=== PATIENT | female | born 1980 | race Caucasian/White ===

== ENCOUNTER 2023-06-17 15:34 | Emergency (ER) | payer MEDICAID, SELFPAY ==
[2023-06-17 15:49] VITALS: BP 121/58; PULSE 80; RESP 18; TEMP 36.3; O2SAT 100; BMI 25.6
--- NOTE | 2023-06-17 15:57 | ED.GENADULT ---
HPI - General Adult General Chief complaint: Ear Problems Stated complaint: Ear pain Time Seen by Provider: 06/17/23 16:18 Source: patient, RN notes reviewed and old records reviewed Mode of arrival: ambulatory History of Present Illness HPI narrative: 42-year-old female with no significant past medical history presenting to the ED complaining of right ear pain and mild sore throat since today. Denies drainage from ear, hearing loss, difficulty /inability to swallow, SOB/CP, recent travel, sick contacts, cough Onset (ago): hour(s) Related Data Previous Rx's Medication Instructions Recorded ciprofloxacin HCl 0.2 % ear drops 5 drp otic (ear) right Q12H 7 days 06/17/23 in a dropperette #14 ea Allergies Allergy/AdvReac Type Severity Reaction Status Date / Time No Known Allergies Allergy Verified 06/17/23 15:49 Review of Systems Review of Systems: Constitutional: No Fever, No Chills ENT/Mouth: + Ear Pain, No Nasal Congestion, No Sinus Pain, No Hoarseness, + sore throat, No Rhinorrhea, No Swallowing Difficulty Cardiovascular: No Chest Pain, No SOB Respiratory: No Cough, No Sputum, No Wheezing Gastrointestinal: No Nausea, No Vomiting, No Abdominal pain Musculoskeletal: No joint pain, No Myalgias, No Joint Swelling Skin: No Skin Lesions, No rash Neuro: No Weakness Yes all other systems are reviewed and are negative Constitutional: Constitutional: Reports as per [facility] Past Medical History Attestation statement: The following information was validated with the patient. Source: old records reviewed Social History Social History Advance Directives: No Advance Directives Information Provided: No Physical Exam ED Vital Signs: Vital Signs - 24 hr 06/17/23 15:49 Temperature 97.4 F Pulse Rate 80 Respiratory Rate 18 Blood Pressure 121/58 L Pulse Oximetry 100 Oxygen Delivery Method Room Air BMI result Body Mass Index 25.6 Const General: cooperative, healthy appearing and no acute distress Orientation/consciousness: patient oriented x3 Limitations: no limitations HENMT Head: Yes normal to inspection and Yes atraumatic Ears: hearing grossly normal bilaterally, mastoids normal, external ear abnormal auricular tenderness on the right and pain with movement of external ear on the right and TMs normal General nose exam: Normal external nose present Face and sinus: Yes normal facial exam Throat: Yes uvula midline, Yes abnormal tonsil ( bilaterally swollen, no exudates or erythema), No peritonsillar mass, No uvula laterally displaced and No uvular edema Eyes General: appearance normal, both eyes and all related structures EOM: EOMs intact bilaterally Neck Neck: Yes normal visual inspection, Yes no lymphadenopathy (+ submandibular lymphadenopathy > right), Yes no meningeal signs and No anterior neck swelling Resp Effort & Inspection: normal respiratory effort, not labored, no respiratory distress and no stridor Auscultation: clear to auscultation bilaterally Cardio Rate: regular rate Heart sounds: S1 normal heart sound present and S2 normal heart sound present Skin Rashes: no rashes Wounds: no wounds Neuro General: patient oriented x3, tone normal and no meningeal signs Cranial nerves: Yes CN's II-XII intact bilaterally Gait exam (Neuro): Normal gait present Extrem General: Yes normal to inspection Course Course Course Narrative: This is an RME: Additional HPI, ROS, PE not included below will be deferred to primary provider. This is a 42-year-old female presenting to the emergency department with complaints of right ear pain and sore throat for the last hour. On examination, vital signs within normal limits. Oropharynx with tonsillar hypertrophy, uvula midline, right ear with no erythema or edema noted. Plan: Strep swab and viral swabs - viral swabs and rapid strep negative Results discussed with patient including worrisome signs and symptoms and strict return precautions, and when to return to the emergency department. They verbalized understanding and feel safe for discharge at this time. Medical Decision Making Medical Decision Making MDM Narrative: 42-year-old female with no significant past medical history presenting to the ED complaining of right ear pain and mild sore throat since today. On exam vital signs stable, NAD, nontoxic appearing, right external ear canal with tenderness and tragus tenderness. TMs WNL. Mastoid stool panel. +B/l tonsillar swelling noted without exudates. Uvula midline. No stridor. Concern for viral syndrome versus pharyngitis versus otitis externa. 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 Differential Diagnosis Differential Diagnoses: The differential diagnosis associated with the presentation includes As above Lab Data [facility] Lab Attestation statement: I reviewed the patient's lab results. Labs: Lab Results 06/17/23 Range/Units 16:02 Influenza Type A (PCR) NEGATIVE (Negative) Influenza Type B (PCR) NEGATIVE (Negative) RSV RNA Qual (PCR) NEGATIVE (Negative) SARS-CoV-2 RNA (RT-PCR) NEGATIVE (Negative) S. pyogenes GrpA KARSTEN Negative (Negative) External Record Review External record reviewed: Inpatient record, Office record, Outpatient record, Prior outpatient labs, Prior outpatient radiology, Primary care record and Outside ED record Tests considered The following testing was considered but not selected: As above Prescription Management I considered prescription management with: Pain Medication and Antibiotic Discharge Plan Discharge Clinical Impression: Otitis externa Patient Disposition: Home, Self-Care Instructions: Otitis Externa (DC) Additional Instructions: you tested negative for COVID, flu, RSV, and strep ciprofloxacin drops is an antibiotic drop please use as prescribed Follow-up with her doctor Take Tylenol and Motrin as needed. Avoid anything in the ears including water and Q-tips If symptoms persist or worsen return to the ED des negativo en la prueba de COVID, gripe, VRS y estreptococos Las gotas de ciprofloxacina son gotas antibi?caden. Util?celas seg?n lo prescrito. Seguimiento con black m?dico. Fletcher Tylenol y Motrin seg?n sea necesario. Evite cualquier cosa en los o?dos, incluido el agua y los hisopos. Si los s?ntomas persisten o empeoran, regrese al servicio de urgencias. Prescriptions: New ciprofloxacin HCl 0.2 % dropperette 5 drp otic (ear) right Q12H 7 Days Qty: 14 0RF Referrals: [facility] [Primary Care Provider] - 5 days Interventions: ED Discharge Assessment Last Done: 06/17/23 18:16 Discharge Date/Time: 06/17/23 18:16 Print Language: Croatian
[2023-06-17 16:39] LABS: IDNOW Serial# 08D9AD1C; Strep A Nucleic Acid Negative (Negative)
[2023-06-17 16:47] LABS: Influenza A PCR NEGATIVE (Negative); Influenza B PCR NEGATIVE (Negative); Resp Syncy Virus RNA Qual PCR NEGATIVE (Negative); SARS COV2 PCR INHOUSE NEGATIVE (Negative)
== END 2023-06-17 18:16 | disposition home or self-care (01) ==
PROVIDERS: Physician Assistant Medical; Emergency Provider Emergency Medicine
DX: H60.91 Unspecified otitis externa, right ear (principal); J02.9 Acute pharyngitis, unspecified; Z20.822 Contact with and (suspected) exposure to COVID-19; Z20.828 Contact with and (suspected) exposure to other viral communicable diseases
CPT/HCPCS: 0241U; 87651; 99282; 99283

== ENCOUNTER 2023-07-15 09:35 | Emergency (ER) | payer MEDICAID, SELFPAY ==
--- NOTE | ~2023-07-15 | XR_ITS ---
EXAMINATION: XR WRIST, RIGHT CLINICAL INFORMATION: Right wrist pain COMPARISON: None available. TECHNIQUE: PA, lateral, and oblique views of the right wrist. FINDINGS: The bones and soft tissues are normal. No fracture. Alignment is anatomic with normal joint spaces. No erosions or abnormal soft tissue calcifications. XR/XR wrist RT min 3V IMPRESSION: Normal right wrist.
[2023-07-15 09:53] VITALS: BP 111/71; PULSE 86; RESP 14; TEMP 36.3; O2SAT 100; BMI 25.4
--- NOTE | 2023-07-15 10:36 | ED_ITS ---
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 She states the pain is located on the dorsal aspect of the wrist and is worse with palpation, flexion and hyperextension. The pain radiates to the 3, 4, 5th digits. No associated numbness or tingling. No weakness. No history of similar pains in the past. She is unemployed, denies computer work or repetitive movements using the hands. MD Complaint: joint pain Onset (ago): day(s) (2) Pain Consistency: constant Location: right and upper extremity Severity scale (1-10): 7 Quality: aching Radiation: distal Relieving factors: rest Exacerbating factors: range of motion and palpation Associated symptoms: denies other symptoms Related Data Previous Rx's Medication Instructions Recorded ciprofloxacin HCl 0.2 % ear drops 5 drp otic (ear) right Q12H 7 days 06/17/23 in a dropperette #14 ea Allergies Allergy/AdvReac Type Severity Reaction Status Date / Time No Known Allergies Allergy Verified 06/17/23 15:49 Review of Systems Review of Systems: Yes all other systems are reviewed and are negative [facility] Social History Social History Advance Directives: No Advance Directives Information Provided: No Physical Exam Vital Signs: Vital Signs: Last Vital Signs Temp 97.3 F 07/15/23 09:53 Pulse 86 07/15/23 09:53 Resp 14 07/15/23 09:53 BP 111/71 07/15/23 09:53 Pulse Ox 100 07/15/23 09:53 O2 Del Method Room Air 07/15/23 09:53 BMI result Body Mass Index 25.4 Appearance: Alert. Oriented X3. No acute distress. HEENT: normal inspection CVS: Normal heart rate and rhythm. Pulses normal. Respiratory: No respiratory distress. Skin: Skin warm and dry. Normal skin color. Normal skin turgor. No rashes. Extremities: normal inspection of bilateral wrists. tenderness of the central wrist on both the dorsal aspect and the palmar aspect. pain with flexion and hypertension, no pain with lateral movements. equal hand grasp bilaterally. no sensory deficits Neuro: Oriented X 3. No motor deficit. No sensory deficit. Medical Decision Making Medical Decision Making [facility] Narrative: 42 yo right hand dominant female presenting with nontraumatic right wrist pain x2 days. XR negative. pain worse with palpation and ROM - radiates to digits 3,4,5. possible nerve entrapment. will place in velcro wrist splint, start NSAIDS and have her f/u with orthopedics if no improvement with conservative measures. chief of staff doctor used to discuss results and plan. stable for d/c home Differential Diagnosis Differential Diagnoses: The differential diagnosis associated with the presentation includes carpal tunnel syndrome, cubital tunnel syndrome, arthritis, ganglion cyst, tendonopathy, inflammatory arthritis, wrist sprain, doubt acute fracture Independent Interpretation I performed an independent interpretation of an: Plain X-Ray Interpretation: no acute fx appreciated, agree w/ radiology read Radiology Impression Discussion of test interpretation with radiology: I have reviewed the radi ologist's reading. Radiologist Impression: EXAMINATION: XR WRIST, RIGHT CLINICAL INFORMATION: Right wrist pain COMPARISON: None available. TECHNIQUE: PA, lateral, and oblique views of the right wrist. FINDINGS: The bones and soft tissues are normal. No fracture. Alignment is anatomic with normal joint spaces. No erosions or abnormal soft tissue calcifications. XR/XR wrist RT min 3V IMPRESSION: Normal right wrist. Prescription Management I considered prescription management with: Pain Medication Critical Care Time Critical Care Time Critical Care Time: No Discharge Plan Discharge Clinical Impression: Acute pain of right wrist Patient Disposition: Home, Self-Care Instructions: Wrist Injury (ED), Arthralgia (ED) Additional Instructions: Your x-ray today was normal. Rest your wrist, limit use of the right hand Recommend wearing the provided velcro splint for comfort and support. Sleep with the brace on. Use ice several times per day for the next 48 hours. Take Motrin and/or Tylenol as needed for pain. Follow up with Orthopedics for further evaluation if pain persists. Tu radiograf?a de hoy fue normal. Descanse la mu?eca, limite el uso de la mano derecha. Se recomienda usar la f?david de velcro proporcionada para mayor comodidad y apoyo. Duerma con el aparato ortop?dico puesto. Use hielo varias veces al d?a rush las pr?ximas 48 horas. Happy Motrin y/o Tylenol seg?n sea necesario para el dolor. Kendall un seguimiento con [employer] para roseanne evaluaci?n adicional si el dolor persiste. Prescriptions: No Action ciprofloxacin HCl 0.2 % dropperette 5 drp otic (ear) right Q12H 7 Days Qty: 14 0RF Referrals: [facility] [Provider Group] Interventions: ED Discharge Assessment Last Done: 07/15/23 12:27 Discharge Date/Time: 07/15/23 12:27 Print Language: Polish
== END 2023-07-15 12:27 | disposition home or self-care (01) ==
PROVIDERS: Emergency Provider Emergency Medicine Emergency Medical Services
DX: M25.531 Pain in right wrist (principal)
CPT/HCPCS: 73110; 99283

== ENCOUNTER 2023-10-08 08:11 | Emergency (ER) | payer MEDICAID, SELFPAY ==
--- NOTE | ~2023-10-08 | XR_ITS ---
EXAMINATION: XR HAND, RIGHT CLINICAL INFORMATION: Right hand COMPARISON: None available. TECHNIQUE: PA, lateral, and oblique views of the right hand. FINDINGS: The bones and soft tissues are normal. No fracture. Alignment is anatomic. Joint spaces are maintained. No erosions or soft tissue calcifications. XR/XR hand RT 2V IMPRESSION: Normal right hand.
[2023-10-08 08:28] VITALS: BP 100/61; PULSE 80; RESP 16; TEMP 36.1; O2SAT 99; BMI 25.1
--- NOTE | 2023-10-08 09:54 | ED.EXTPRO ---
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 Reports stirring a pot of rice repeatedly with her right hand when she began to have shooting pain along her ventral wrist and up into her forearm. Pain is worse with flexion and extension of wrist. Pain does not extend past the right elbow. Has not taken anything for the pain at home. Reports same pain like this in the past. She was provided with a wrist splint after unremarkable imaging. Did not follow up with ortho. She is currently unemployed and denies work on computers. Denies previous diagnosis of carpal tunnel. Denies injury or trauma to the right extremity. Denies fever, chills, N/V, numbness/tingling/paresthesias of the RUE. Related Data Previous Rx's Medication Instructions Recorded ciprofloxacin HCl 0.2 % ear drops 5 drp otic (ear) right Q12H 7 days 06/17/23 in a dropperette #14 ea prednisone 20 mg tablet 20 mg PO DAILY 10 days #10 tabs 10/08/23 Allergies Allergy/AdvReac Type Severity Reaction Status Date / Time No Known Allergies Allergy Verified 06/17/23 15:49 Review of Systems Review of Systems: Constitutional: No fever, chills, fatigue, night sweats, weight changes ENT/Mouth: No ear pain, hearing loss, nasal congestion, sinus pain, rhinorrhea, sore throat Eyes: No eye pain, swelling, redness, vision changes, discharge Cardio: No chest pain, palpitations, CHAIDEZ, orthopnea, peripheral edema Pulm: No SOB, cough, sputum, wheezing, dyspnea, hemoptysis GI: No nausea, vomiting, hematemesis, abdominal pain, diarrhea, constipation, hematochezia, melena : No irregular bleeding, dysuria, frequency, urgency, hesitancy, hematuria, flank pain, urinary flow changes, urinary incontinence or retention MSK: No back pain, neck pain, joint pain, myalgias, +right hand/wrist pain Skin: No lesions, rashes Neuro: No weakness, numbness, paresthesias, LOC, dizziness, headache All other systems reviewed and are negative. [facility] Past Medical History Attestation statement: The following information was validated with the patient. Source: old records reviewed and nursing notes reviewed Onset Date is defined in the Problem List Problems that require an onset date and time if occurred within 24 hrs of arrival to the ED Aortic Dissection and Rupture; Neurologic impairment; Cardiopulmonary Arrest; Endotracheal Intubation; Insertion or Replacement of Mechanical Circulatory Assist Device Social History Social History Advance Directives: No Advance Directives Information Provided: No Physical Exam Vital Signs: Vital Signs: Last Vital Signs Temp 97 F 10/08/23 08:28 Pulse 80 10/08/23 08:28 Resp 16 10/08/23 08:28 BP 100/61 10/08/23 08:28 Pulse Ox 99 10/08/23 08:28 O2 Del Method Room Air 10/08/23 08:28 BMI result Body Mass Index 25.1 Vital signs wnl. Const: General: cooperative, no acute distress, alert and awake Orientation/consciousness: patient oriented x3 Limitations: no limitations HEENT: Head: Yes normal to inspection Ears: hearing grossly normal bilaterally General nose exam: Normal external nose present Eyes: General: appearance normal, both eyes and all related structures Resp: Effort & Inspection: normal respiratory effort Auscultation: clear to auscultation bilaterally Cardio: Rate: regular rate Rhythm: regular rhythm Peripheral pulses: Peripheral pulses 2+ throughout GI: Inspection: Yes normal to inspection Palpation (GI): Soft to palpation, nontender, no guarding and hepatosplenomegaly present Skin: General skin exam: no rashes or lesions noted Neuro: General: patient oriented x3, gait normal and moves all extremities Extrem: Other: + normal inspection of bilateral wrists. tenderness of the central wrist on both the dorsal aspect and the palmar aspect. pain with flexion and hypertension, no pain with lateral movements. decreased hand grasp on right. no sensory deficits. positive tinel and phalen to right wrist. General: Yes normal to inspection and Yes full ROM Course Course Course Narrative: 1015-- XR right hand unremarkable. Patient's symptoms are consistent with possible nerve intrapment. Will provide patient with wrist splint and rx for prednisone. Advised to take NSAIDS for pain. Advised to follow up w/ ortho for possible injections/ surgery. She has been provided with a referral. Patient has remained stable throughout ED visit today. Discussed strict return precautions. All questions answered at this time. Patient is agreeable with disposition and stable for discharge. Medical Decision Making Medical Decision Making [facility] Narrative: 43 year old Liberian speaking female who is right hand dominant presents to the ED for evaluation of acute onset atraumatic right hand/wrist pain since yesterday. Vital signs are stable. Patient is nontoxic appearing and in NAD. normal inspection of bilateral wrists. tenderness of the central wrist on both the dorsal aspect and the palmar aspect. pain with flexion and hypertension, no pain with lateral movements. equal hand grasp bilaterally. no sensory deficits Concern for nerve entrapment. Unlikely cubital tunnel, fracture, dislocation, dupuytrens contracture, compartment syndrome, NV compromise, threat to limb. Plan for imaging. Differential Diagnosis Differential Diagnoses: The differential diagnosis associated with the presentation includes as above. Admission/Observation not indicated. Independent Interpretation I performed an independent interpretation of an: Plain X-Ray Interpretation: XR right hand without acute fracture, agree with radiologist's interpretation. Radiology Impression Discussion of test interpretation with radiology: I have reviewed the radiologist's reading. Radiologist Impression: XR hand RT 2V IMPRESSION: Normal right hand. External Record Review External record reviewed: Inpatient record Prescription Management I considered prescription management with: Pain Medication and Other (steroid) Social Determinants Patient?s care significantly limited by Social Determinants of Health including: Other Social Determinant of Health Procedures Orthopedic Splinting/Casting Injury #1: Side: right Upper Extremity Injury Location: wrist Upper Extremity Immobilizer: wrist splint Critical Care Time Critical Care Time Critical Care Time: No Discharge Plan Discharge Clinical Impression: Acute carpal tunnel syndrome of right wrist Patient Disposition: Home, Self-Care Instructions: Carpal Tunnel Surgery (DC) Additional Instructions: The xray of your right hand was normal. You have been provided with a velco splint for comfort/support. Make sure you sleep with your brace one. Rest the wrist, limit use of the right hand. Use ice several times per day for the next 48 hours. Take motrin or tylenol as needed for pain/discomfort. Prednisone is a steroid that has been sent to your pharmacy. Take this as prescribed for the next 10 days. This may warrant steroid injections or surgery which must be done by an orthopedic doctor. You have been provided with a referral to an orthopedic surgeon. CALL THEM TO MAKE AN APPOINTMENT. THEY WILL NOT CALL YOU. If symptoms persist or worsen. please return to the ED. In the case of an emergency, call 911. La radiograf?a de black mano derecha fue normal. Se le leo proporcionado roseanne f?david de velcro para mayor comodidad y apoyo. Aseg?rate de dormir con tu aparato ortop?dico. Descanse la mu?eca, limite el uso de la mano derecha. Use hielo varias veces al d?a rush las pr?ximas 48 horas. [place] motrin o tylenol seg?n sea necesario para el dolor o la incomodidad. La prednisona es un esteroide que se envi? a black farmacia. T?lanza seg?n lo prescrito rush los pr?ximos 10 d?as. [place] puede justificar inyecciones de esteroides o cirug?a que debe realizar un m?dico ortop?dico. Se le leo proporcionado roseanne derivaci?n a un cirujano ortop?dico. LL?[facility]. NO TE LLAMAR?N. Si los s?ntomas persisten o empeoran. por favor regrese al servicio de urgencias. En amelia de roseanne emergencia, llame al 911. Prescriptions: New prednisone 20 mg tablet 20 mg PO DAILY 10 Days Qty: 10 0RF No Action ciprofloxacin HCl 0.2 % dropperette 5 drp otic (ear) right Q12H 7 Days Qty: 14 0RF Referrals: [facility] [place] [facility] [Provider Group] - 2 weeks Stand Alone Forms: Work/School Release Print Language: Liberian
[2023-10-08 10:48] VITALS: BP 116/65; PULSE 68; RESP 16; O2SAT 98
== END 2023-10-08 11:11 | disposition home or self-care (01) ==
PROVIDERS: Emergency Provider Emergency Medicine
DX: G56.01 Carpal tunnel syndrome, right upper limb (principal)
CPT/HCPCS: 73120; 99283; 99284

== ENCOUNTER 2023-11-05 14:28 | Outpatient (AMB) | payer MEDICAID, SELFPAY ==
--- NOTE | 2023-11-05 15:05 | MHC.OFFVIS ---
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 Patient reports for a few months she has been experiencing pain in her CMC as well as a burning sensation that travels to her elbow. States numbness with sleeping. No previous tx. Finds little support with use of a wrist brace. 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 She states she has pain at the CMC as well as a burning sensation that travels down to her elbow. She also c/o numbness in her wrist with sleeping. She has not had any treatment in the past. She finds mild support with the use of a wrist brace. REPLACED BY [facility] Social History (Updated 11/05/23 @ 15:11 by Corine Mathews Mary) Patient Tobacco Use Status: Never used Tobacco Current occupational status: unemployed Current occupation: right hand dominant Review of Systems Const All systems reviewed & are unremarkable except as noted in HPI and below Physical Exam Vital Signs: BMI result Body Mass Index 25.1 Const General: cooperative, healthy appearing, comfortable, no acute distress, well developed and alert Orientation/consciousness: patient oriented x3 HEENT Head: Yes normal to inspection, Yes normocephalic and Yes atraumatic Eyes General: appearance normal, both eyes and all related structures Resp Effort & Inspection: normal respiratory effort and able to speak in complete sentences Cardio Rate: regular rate Peripheral pulses: Peripheral pulses 2+ throughout GI Palpation (GI): Soft to palpation Skin Lesions: no lesions Rashes: no rashes Neuro General: patient oriented x3 Extrem Other: Right elbow: Skin intact. No erythema or swelling. ROM full without pain. Tenderness over the lateral epicondyle and pain with resisted wrist extension. NVI. Right wrist: Normal to inspection. Tenderness over the carpal canal. Numbness and tingling over the median nerve distribution of the right hand. Able to make a full fist and fully extend all fingers. Positive Tinel's. Assessment & Plan Assessment & Plan (1) Lateral epicondylitis, right elbow: Code(s): M77.11 - Lateral epicondylitis, right elbow (2) Medial epicondylitis, right elbow: Code(s): M77.01 - Medial epicondylitis, right elbow (3) Carpal tunnel syndrome on right: Code(s): G56.01 - Carpal tunnel syndrome, right upper limb Plan An EMG nerve conduction study was ordered occupational therapy further evaluate the source of her numbness. I would also get her into occupational therapy for her elbow and wrist. I encouraged her on modification of activities and use anti-inflammatories to help with her symptoms. She will see us back once the study is complete. Orders: Orders OT Evaluation and Treatment Today G56.01 - Carpal tunnel syndrome, right upper limb, M77.01 - Medial epicondylitis, right elbow, M77.11 - Lateral epicondylitis, right elbow NE electromyogram (EMG) Today R20.0 - Anesthesia of skin, R20.2 - Paresthesia of skin NE nerve conduction velocity Today R20.0 - Anesthesia of skin, R20.2 - Paresthesia of skin Patient Instructions: Scribed for Julianne Julian PA-C, by Brenton Reynoso emergency medical services coordinator, on 11/05/2023 at 3:00 PM EST. I, Julianne Julian PA-C, have personally reviewed and agree with the information entered by the scribe. Coding Level of Care Code New Pt Level 3 (34928) Diagnoses Lateral epicondylitis, right elbow M77.11 Medial epicondylitis, right elbow M77.01 Carpal tunnel syndrome on right G56.01
[2023-11-05 15:06] VITALS: BMI 25.1
== END 2023-11-05 15:51 | disposition home or self-care (01) ==
PROVIDERS: Visit Provider Physician Assistant
DX: M77.11 Lateral epicondylitis, right elbow (principal); M77.01 Medial epicondylitis, right elbow; G56.01 Carpal tunnel syndrome, right upper limb
CPT/HCPCS: 99203

== ENCOUNTER → 2023-11-05 14:28 | Outpatient (BNVA) | payer MEDICAID, SELFPAY | PROVIDERS: Visit Provider Physician Assistant | DX: M77.11 Lateral epicondylitis, right elbow (principal); M77.01 Medial epicondylitis, right elbow; G56.01 Carpal tunnel syndrome, right upper limb | CPT/HCPCS: 99212 ==

== ENCOUNTER 2023-11-18 08:23 | Emergency (ER) | payer MEDICAID, SELFPAY ==
--- NOTE | ~2023-11-18 | XR_ITS ---
EXAMINATION: XR CHEST CLINICAL INFORMATION: Cough COMPARISON: None available. TECHNIQUE: Frontal view of the chest was obtained. FINDINGS: No significant abnormality is noted involving the heart, lungs, mediastinum, bony thorax or soft tissues. XR/XR chest 1V IMPRESSION: Unremarkable chest examination.
[2023-11-18 08:29] VITALS: BP 126/81; PULSE 88; RESP 19; TEMP 36.6; O2SAT 100; BMI 25.8
[2023-11-18 08:55] LABS: COVID-19 Test Negative (Negative); IDNOW Serial# 08D9AD1C
[2023-11-18 08:57] LABS: IDNOW Serial# 152EDE1D; Influenza A Negative (Negative); Influenza B2 Negative (Negative)
--- NOTE | 2023-11-18 09:13 | ED.GENADULT ---
HPI - General Adult General Chief complaint: Upper Respiratory Symptoms Stated complaint: Cold Symptoms Cough Time Seen by Provider: 11/18/23 09:09 Source: patient Mode of arrival: ambulatory Limitations: no limitations History of Present Illness HPI narrative: 43-year-old female presents with fatigue malaise, myalgias, cough, congestion, wheezing x3 days. Patient reports cough is so severe that at times she gets chest discomfort and shortness of breath only with cough however. Not at rest or with exertion. Patient denies recent sick contacts. Denies nausea, vomiting, abdominal pain, diarrhea, headache, vision changes, dizziness, weakness, chest pain, shortness of breath, fevers and chills at this time. Related Data Previous Rx's Medication Instructions Recorded albuterol sulfate 90 mcg/actuation 2 inh inhalation Q4-6H PRN 11/18/23 breath activated powder inhaler shortness of breath or wheezing #1 ea benzonatate 100 mg capsule 100 mg PO BID PRN cough #20 caps 11/18/23 doxycycline hyclate 100 mg capsule 100 mg PO BID 10 days #20 caps 11/18/23 prednisone 20 mg tablet 20 mg PO DAILY 5 days #5 tabs 11/18/23 Allergies Allergy/AdvReac Type Severity Reaction Status Date / Time No Known Allergies Allergy Verified 11/18/23 08:29 Review of Systems Review of Systems: Yes all other systems are reviewed and are negative PMFSH Past Medical History Attestation statement: The following information was validated with the patient. Source: old records reviewed and nursing notes reviewed Social History Social History Patient Tobacco Use Status: Never used Tobacco Advance Directives: No Current occupational status: unemployed Current occupation: right hand dominant Physical Exam ED Vital Signs: Vital Signs - 24 hr 11/18/23 08:29 Temperature 98 F Pulse Rate 88 Respiratory Rate 19 Blood Pressure 126/81 Pulse Oximetry 100 Oxygen Delivery Method Room Air BMI result Body Mass Index 25.8 vss Appearance: Alert.? Oriented X3.? No acute distress.? Head: Normocephalic, atraumatic, no step-offs or deformities Eyes: Pupils equal, round and reactive to light.? Neck: Normal inspection.? Neck supple.? CVS: Normal heart rate and rhythm.? Pulses normal.? Respiratory: No respiratory distress.? Breath sounds normal.? Abdomen: Soft and nontender.? Skin: Skin warm and dry.? Normal skin color.? Normal skin turgor.? Extremities: No lower extremity edema.? No calf ttp. 5/5 strength to bilateral upper and lower extremities Neuro: Oriented X 3.? No motor deficit.? No sensory deficit. CN 2-12 intact Medical Decision Making Medical Decision Making [facility] Narrative: 0914 43 year old female presents w/ viral sx x 3 days PE beign This is likely viral illness versus bronchitis versus allergies. Unlikely PE, pneumonia, ACS, dissection. No signs of acute respiratory distress. Plan viral testing, x-ray. Differential Diagnosis Differential Diagnoses: The differential diagnosis associated with the presentation includes This is likely viral illness versus bronchitis versus allergies. Unlikely PE, pneumonia, ACS, dissection. No signs of acute respiratory distress. Admission/Observation Consideration of admission/observation: Escalation of care including admission/observation considered Unlikely based off presentation Lab Data [facility] Lab Attestation statement: I reviewed the patient's lab results. Labs: Lab Results 11/18/23 Range/Units 08:38 COVID-19 ([facility]) Negative (Negative) COVID-19 Clin Com See Note Influenza Type A (KARSTEN) Negative (Negative) Influenza Type B (KARSTEN) Negative (Negative) Influenza A & B Note See Note Independent Interpretation I performed an independent interpretation of an: Plain X-Ray Radiology Impression Discussion of test interpretation with radiology: I have reviewed the radiologist's reading. Tests considered The following testing was considered but not selected: No need for labs, patient only has chest discomfort with coughing. No need for CTA unlikely PE. Do not suspect ACS no need for troponin. Prescription Management I considered prescription management with: Other (Steroids, prednisone) Chronic Conditions Patient?s care impacted by: Other (Carpal tunnel syndrome) Discharge Plan Discharge Clinical Impression: Bronchitis Patient Disposition: Home, Self-Care Instructions: Viral Syndrome (ED) Additional Instructions: Take your medications as prescribed. If you were prescribed antibiotics today, it is important that you take your medication to their entirety, do not skip any doses, do not finish them early. Follow-up with your primary care provider this week. Return to the emergency department with new or worsening symptoms. Such as fevers, chills, chest pain, shortness of breath, nausea, vomiting, dizziness, headache, vision changes, lethargy In case of emergency call 911 XR/XR chest 1V IMPRESSION: Unremarkable chest examination. Prescriptions: New benzonatate 100 mg capsule 100 mg PO BID PRN (Reason: cough) Qty: 20 0RF albuterol sulfate 90 mcg/actuation aerosol powdr breath activated 2 inh inhalation Q4-6H PRN (Reason: shortness of breath or wheezing) Qty: 1 0RF prednisone 20 mg tablet 20 mg PO DAILY 5 Days Qty: 5 0RF doxycycline hyclate 100 mg capsule 100 mg PO BID 10 Days Qty: 20 0RF Referrals: Mirella Blake PA-C [Primary Care Provider] - 2 days Stand Alone Forms: Work/School Release Interventions: ED Discharge Assessment Last Done: 11/18/23 10:00 Discharge Date/Time: 11/18/23 10:00
== END 2023-11-18 10:00 | disposition home or self-care (01) ==
PROVIDERS: Emergency Provider Emergency Medicine; PCP Physician Assistant Medical
DX: J40 Bronchitis, not specified as acute or chronic (principal); R05.9 Cough, unspecified; Z11.52 Encounter for screening for COVID-19; Z79.899 Other long term (current) drug therapy
CPT/HCPCS: 71045; 87502; 87635; 99282; 99283

== ENCOUNTER 2024-02-06 11:00 | Outpatient (RCR) | payer MEDICAID, SELFPAY ==
--- NOTE | 2023-12-24 07:49 | MHC.OT.EP ---
[address] [phone] Occupational Therapy Plan of Care Patient Name: Natalie Styles Date of Evaluation: 12/23/23 Diagnosis: R ELBOW MEDIAL EPICONDYLITIS Pain Location: R ELBOW AT REST: 2-3/10 AT MEDIAL ELBOW WITH USE 7-10/10 SQUEEZING, PRESSURE R WRIST AT REST: 0/10 AT BASE OF THUMB/ VOLAR WRIST WITH USE 8-9/10 NUMBNESS/TINGLING Pain Score: 0-10/10 Pain Scale Used: Numeric (0 - 10) Aggravating Factors: HOLDING PHONE FOR LONG PERIODS OF TIME, SLEEPING, GRIPPING/ HOLDING ITEMS Alleviating Factors: ADVIL, HEAT FROM SHOWER, NOT USING ICE CURRENTLY OR CREAMS Assessment: MS STYLES IS A R HANDED FEMALE WHO REPORTS A FIVE MONTH HISTORY OF R ELBOW AND WRIST PAIN. SHE ALSO REPORTS NUMBNESS AND TINGLING THROUGH POINTER AND LONG FINGER. SHE STATES THE NUMBNESS AND TINGLING IS WORSE AT NIGHT AND WHEN HOLDING PHONE FOR PROLONGED PERIODS OF TIME. A PREFAB WRIST ORTHOSIS WAS PROVIDED IN THE ED AND SHE STATES SHE WEARS NIGHTLY WITH NO SIGNIFICANT RELIEF. A 40% LIMITATION IS REPORTED PER THE QUICK DASH ASSESSMENT. ONGOING SKILLED OT IS WARRANTED TO ADDRESS SUSPECTED R GOLFERS ELBOW AND CTS THROUGH JT PROTECTION, ACTIVITY MODIFICATION FOR SAFETY WITH ADLs AND IADLs. Frequency and Duration: The patient will be seen 2X/WEEK FOR 4 WEEKS Short Term Goals: IND HEP IND USE OF COLD/ ICE MASSAGE IND JT PROTECTION/ ACTIVITY MODIFICATION IND ORTHOSIS USE IND TRIAL OF ALT SLEEPING POSITIONS WITH REPORTS OF MILD NUMBNESS/ TINGLING THROUGH RUE Library Media Specialist Goals: QUICK DASH <20% R GROSS GRASP >55 POUNDS REPORT <4/10 PAIN WITH LIFTING >10 POUNDS AND LIGHT IADLs Treatment Plan: Therapeutic Exercise Therapeutic Activity Home Exercise Program Splinting Neuro Re-ed Patient Education Desensitization/Sensory Re-ed Edema Control ADL Training Ultrasound NMES Iontophoresis Paraffin Fluidotherapy MHP Cold Packs Joint Mobilization Soft Tissue Mobilization Kinesiotaping Other (see comments) Electronically Signed By: ALEK CANO OTR/L Please Sign and return to therapist. Thank you once again for your referral.
--- NOTE | 2024-02-06 12:46 | MHC.OT.DC ---
[address] [phone] F: [phone] Occupational Therapy Discharge Note Patient Name: Natalie Styles Provider: Julianne Julian Diagnosis: R ELBOW MEDIAL EPICONDYLITIS Date of Surgery: Date of Evaluation: 12/23/23 Date of Discharge: 02/06/24 Treatments to Date: 11 Cancellations to Date: 1 No Shows to Date: 0 Discharge Status: Achieved Goals Improved Function Independent with HEP Recommend MD Follow-up Discharge Summary: MS STYLES HAS BEEN MOTIVATED AND ENGAGED IN HER OT RX SESSIONS. SHE IS NOW IND WITH HER HEP AND READY FOR TRANSITION TO A HOME BASED PROGRAM. SHE HAS TOLERATED ECCENTRIC STRENGTHENING EXERCISES WELL. IT IS RECOMMENDED THAT Pt CONTINUE TO USE HER ISSUED CFB, ICING, ACTIVTY MODIFICATIONS AND MASSAGE. WILL D/C OT SERVICES AT THIS TIME. Electronically Signed By: ALEK CANO OTR/L Reviewed/agree with student documentation: N/A Therapist: Please Sign and return to therapist, thank you for your referral.
== END 2024-02-06 12:45 | disposition home or self-care (01) ==
LOC: HO.OT 11:00
PROVIDERS: PCP Physician Assistant Medical; Visit Provider Physician Assistant
DX: M77.01 Medial epicondylitis, right elbow (principal); M77.11 Lateral epicondylitis, right elbow; G56.01 Carpal tunnel syndrome, right upper limb
CPT/HCPCS: 97035; 97110; 97140; 97167; 97760

== ENCOUNTER 2024-03-03 09:02 | Outpatient (AMB) | payer MEDICAID, SELFPAY ==
--- NOTE | 2024-03-03 09:09 | MHC.OFFVIS ---
Intake Visit Reasons: OV- Right elbow follow up Intake Note: Natalie a 43 year old macedonian speaking female presents today for a follow up of right hand/elbow pain. Patient reports that she has complete OT with some improvement. She continues to do at home hand exercises. National Insurance Officer Required: Yes National Insurance Officer Name: Robbie Perrin [id number] Allergies No Known Allergies Allergy (Verified 03/03/24 09:11) Medication List - Last Reconciled 03/03/24 by Julianne Julian PA-C albuterol sulfate 90 mcg/actuation 2 inhalations inhalation Q4-6H PRN HPI HPI OV- Right elbow follow up: Details: 43-year-old female who returns to the office today for a follow-up of right elbow pain. She is completed with OT with mild benefits. She continues to do exercises at home as instructed. She also states she has numbness and tingling in her right hand. [facility] Social History Patient Tobacco Use Status: Never used Tobacco Current occupational status: unemployed Current occupation: right hand dominant Review of Systems Const All systems reviewed & are unremarkable except as noted in HPI and below Physical Exam Extrem Other: Right wrist: Normal to inspection.? Tenderness over the carpal canal.? Numbness and tingling over the median nerve distribution of the right hand.? Able to make a full fist and fully extend all fingers.? Positive Tinel's. Assessment & Plan Assessment & Plan (1) Carpal tunnel syndrome on right: Code(s): G56.01 - Carpal tunnel syndrome, right upper limb Category: Medical Plan She does have improvment of symptoms with her right elbow from OT. However; her numbness and tingling in median nerve distribution of right handare still present; therefore we will continue with ordering the EMG and once complete, she will contact to discuss the results. Patient Instructions: Scribed for Julianne Julian PA-C, by Brenton Reynoso medical pathologist, on 03/03/2024 at 9:45 AM EST.? I, Julianne Julian PA-C, have personally reviewed and agree with the information entered by the scribe. Coding Level of Care Code Est Pt Level 3 (45159) Diagnoses Carpal tunnel syndrome on right G56.01
== END 2024-03-03 10:23 | disposition home or self-care (01) ==
PROVIDERS: PCP Physician Assistant Medical; Visit Provider Physician Assistant
DX: G56.01 Carpal tunnel syndrome, right upper limb (principal)
CPT/HCPCS: 99213

== ENCOUNTER → 2024-03-03 09:02 | Outpatient (BNVA) | payer MEDICAID, SELFPAY | PROVIDERS: PCP Physician Assistant Medical; Visit Provider Physician Assistant | DX: G56.01 Carpal tunnel syndrome, right upper limb (principal) | CPT/HCPCS: 99212 ==

== ENCOUNTER 2024-08-02 08:29 | Emergency (ER) | payer MEDICAID, SELFPAY ==
[2024-08-02 08:38] VITALS: BP 130/78; PULSE 90; RESP 18; TEMP 36.4; O2SAT 100; BMI 25.1
[2024-08-02 09:03] LABS: COVID-19 Test Positive (Negative); IDNOW Serial# 152EDE1D
[2024-08-02 09:15] LABS: IDNOW Serial# 9DB6401D
[2024-08-02 09:16] LABS: Influenza A Negative (Negative); Influenza B2 Negative (Negative)
--- NOTE | 2024-08-02 09:42 | ED_ITS ---
HPI - General Adult General Chief complaint: General Medical Stated complaint: lost of taste cough Time Seen by Provider: 08/02/24 09:04 Source: patient, RN notes reviewed and old records reviewed Mode of arrival: ambulatory History of Present Illness ED Provider: Kemi Myrick PA-C [facility] narrative: 43-year-old female no significant past medical history presenting to the ED complaining of sore throat, dry cough, chest discomfort with cough x few days and loss of taste and smell x today. Denies fever, chills, SOB, travel, known sick contacts no difficulty or inability to swallow Related Data Previous Rx's ?Medication ?Instructions ?Recorded albuterol sulfate 90 mcg/actuation 2 inh inhalation Q4-6H PRN 11/18/23 breath activated powder inhaler shortness of breath or wheezing #1 ea Allergies Allergy/AdvReac Type Severity Reaction Status Date / Time No Known Allergies Allergy Verified 08/02/24 08:40 Review of Systems Review of Systems: Yes all other systems are reviewed and are negative Constitutional: Constitutional: Reports as per [facility] Past Medical History Attestation statement: The following information was validated with the patient. Source: old records reviewed Social History Social History Patient Tobacco Use Status: Never used Tobacco Advance Directives: No Advance Directives Information Provided: Yes Current occupational status: unemployed Current occupation: right hand dominant Physical Exam ED Vital Signs: Vital Signs - 24 hr 08/02/24 08:38 08/02/24 09:52 Temperature 97.6 F 97.6 F Pulse Rate 90 90 Respiratory Rate 18 18 Blood Pressure 130/78 130/78 Pulse Oximetry 100 100 Oxygen Delivery Method Room Air Room Air BMI result Body Mass Index 25.1 Const General: cooperative, healthy appearing and no acute distress Orientation/consciousness: patient oriented x3 Limitations: no limitations HENMT Head: Yes normal to inspection and Yes atraumatic Ears: hearing grossly normal bilaterally General nose exam: Normal external nose present Face and sinus: Yes normal facial exam Mouth: Normal oral and palatal mucosa present and no drooling Throat: Yes posterior oropharynx normal, Yes tonsils normal, Yes uvula midline, No peritonsillar mass, No uvula laterally displaced and No uvular edema Eyes General: appearance normal, both eyes and all related structures EOM: EOMs intact bilaterally Neck Neck: Yes normal visual inspection and Yes no meningeal signs Resp Effort & Inspection: normal respiratory effort and no respiratory distress Auscultation: clear to auscultation bilaterally, no crackles and no wheezes Cardio Rate: regular rate Heart sounds: S1 normal heart sound present and S2 normal heart sound present Skin Rashes: no rashes Wounds: no wounds Neuro General: patient oriented x3, tone normal and no meningeal signs Cranial nerves: Yes CN's II-XII intact bilaterally Gait exam (Neuro): Normal gait present Extrem General: Yes normal to inspection Course Course Course Narrative: -COVID-19 positive Results discussed with patient including worrisome signs and symptoms and strict return precautions, and when to return to the emergency department. They verbalized understanding and feel safe for discharge at this time. Medical Decision Making Medical Decision Making [facility] Narrative: 43-year-old female no significant past medical history presenting to the ED complaining of sore throat, dry cough, chest discomfort with cough x few days and loss of taste and smell x today. On exam vital signs stable, NAD, nontoxic appearing, dry cough appreciated, lungs CTA, oropharynx WNL, talking in complete sentences. Concern for viral illness vs bronchitis vs viral pharyngitis. Lower suspicion for acute strep pharyngitis or pneumonia at this time. No evidence of DIAGNOSTIC CARDIAC SONOGRAPHER/retropharyngeal abscess Plan: Viral testing Please refer to course for remaining clinical decision making, interpretation of labs/imaging results, and discussions with consultants and/or family members. Differential Diagnosis Differential Diagnoses: The differential diagnosis associated with the presentation includes As above Lab Data [facility] Lab Attestation statement: I reviewed the patient's lab results. Labs: Lab Results 08/02/24 Range/Units 08:45 COVID-19 ([facility]) Positive A (Negative) COVID-19 Clin Com See Note Influenza Type A (KARSTEN) Negative (Negative) Influenza Type B (KARSTEN) Negative (Negative) Influenza A & B Note See Note External Record Review External record reviewed: Inpatient record, Office record, Outpatient record, Prior outpatient labs, Prior outpatient radiology, Primary care record and Outside ED record Tests considered The following testing was considered but not selected: As above Discharge Plan Discharge Clinical Impression: COVID-19 Patient Disposition: Home, Self-Care Instructions: COVID-19 (Coronavirus Disease 2019) (ED) Additional Instructions: YOU HAVE COVID-19 At this time you will be okay for discharge. Please self isolate for 5 days. Do not expose yourself to others. You may not go to work or school. Please continue to follow cold instructions and wash your hands frequently. You may take Tylenol / Motrin as directed on the bottle for pain or fever. If you have constant or persistent shortness of breath, fever unresolved with medications, chest pain, or your unable to eat or drink please return to the ED CDC Guidelines for home isolation: - Stay away from others - WEAR A MASK if you are sick AND STAY HOME - Cover your mouth and nose with a tissue when you cough or sneeze. Dispose of tissues in a lined trash can and wash your hands immediately with soap and water for at least 20 seconds. If soap and water are not available, clean hands with alcohol-based hand senior care assistant that contains at least 60% alcohol. - Clean your hands often with soap and water for at least 20 seconds - Avoid touching your eyes, nose and mouth with unwashed hands - Do not share dishes, drinking glasses, cups, eating utensils, towels, or bedding with other people in your home. After using these items, wash them thoroughly with soap and water or put in the spearer. - Clean high-touch surfaces in your isolation area ( sick room and bathroom) every day; let a caregiver clean and disinfect high-touch surfaces in other areas of the home. Clean the area or item with soap and water or another detergent if it is dirty. Then, use a household disinfectant. - Limit contact with pets and animals: If you must care for a pet, wash your hands before and after interacting with them) Prescriptions: No Action albuterol sulfate 90 mcg/actuation aerosol powdr breath activated 2 inh inhalation Q4-6H PRN (Reason: shortness of breath or wheezing) Qty: 1 0RF Referrals: Mirella Blake PA-C [Primary Care Provider] - Interventions: ED Discharge Assessment Last Done: 08/02/24 09:52 Discharge Date/Time: 08/02/24 09:54 Print Language: Setswana
[2024-08-02 09:52] VITALS: BP 130/78; PULSE 90; RESP 18; TEMP 36.4; O2SAT 100
== END 2024-08-02 09:54 | disposition home or self-care (01) ==
PROVIDERS: Emergency Provider Student in an Organized Health Care Education/Training Program; PCP Physician Assistant Medical
DX: U07.1 COVID-19 (principal); R05.9 Cough, unspecified; J02.9 Acute pharyngitis, unspecified; R43.9 Unspecified disturbances of smell and taste
CPT/HCPCS: 87502; 87635; 99282; 99283

== ENCOUNTER 2025-01-31 08:06 | Emergency (ER) | payer MEDICAID, SELFPAY ==
--- NOTE | ~2025-01-31 | XR_ITS ---
EXAMINATION: XR CHEST CLINICAL INFORMATION: cough COMPARISON: Chest x-ray 11/18/2023 TECHNIQUE: 2 views of the chest were obtained. FINDINGS: No significant abnormality is noted involving the heart, lungs, mediastinum, bony thorax or soft tissues. There is mild bilateral apical pleural thickening XR/XR chest 2V IMPRESSION: Mild bilateral apical pleural thickening otherwise unremarkable chest exam. Electronically signed by: Bonifacio Ashraf MD 01/31/2025 09:30 AM EDT
[2025-01-31 08:13] VITALS: BP 125/69; PULSE 86; RESP 16; TEMP 37; O2SAT 98; BMI 27.7
[2025-01-31 08:40] LABS: IDNOW Serial# 55D5AD1C; Strep A Nucleic Acid Negative (Negative)
--- OUTSIDE RECORDS SUMMARY | 2025-01-31 08:46 | XMS_ITS | Clinical Summary ---
Author Organization [facility] Address [address] [place] [address] Care Team Providers Care Engineering Aide Name Role Phone Mirella Blake PA-C Primary Care Provider Source Comments PLEASE NOTE, if this patient is a minor, it may be UNLAWFUL to discuss sensitive information that is contained in these records (such as FAMILY PLANNING, MENTAL HEALTH or SUBSTANCE ABUSE) with the minor patient's parent or other person without the patient's specific authorization.[facility] Allergies No known active allergies Medications miscellaneous medical supply miscIndications :Bilateral carpal tunnel syndrome by miscellaneous route nightly at bedtime Bilateral hand/wrist splints to wear daily/QHS. Dx: G56.03. Length: lifetime 1 Each 9 Active PARoxetine HCl (PAXIL) 10 mg tabletIndicatio ns:Anxiety Take 1 Tab by mouth every morning 30 Tab 3 0 Active cholecalciferol , vitamin D3, 25 mcg (1,000 unit) tabletIndicatio ns:Vitamin D deficiency Take 1 Tab by mouth once daily 90 Tab 1 0 Active dextromethorpha n-guaifenesin (HUMIBID DM) 30-600 mg per 12 hr tabletIndicatio ns:Viral upper respiratory tract infection Take 1 Tablet by mouth 2 (two) times daily 30 Tablet 2 Active fluticasone (FLONASE) 50 mcg/actuation nasal sprayIndication s:Viral upper respiratory tract infection PLACE 2 SPRAYS IN BOTH NOSTRILS ONCE DAILY 16 mL 2 Active ferrous sulfate 325 mg (65 mg iron) tabletIndicatio ns:Iron deficiency anemia secondary to inadequate dietary iron intake TAKE 1 TABLET BY MOUTH TWICE A DAY WITH A MEAL 180 Tablet 1 3 Active cetirizine (ZYRTEC) 10 mg tabletIndicatio ns:Ear itching Take 1 Tablet by mouth once daily 30 Tablet 3 5 Active Active Problems Problem Noted Date Diagnosed Date Depression with anxiety 02/18/2023 Prediabetes 02/18/2023 Mixed hyperlipidemia 02/18/2023 Breast cyst, right 03/12/2022 Overview (03/12/2022): 03/06/22 Found on mammogram - no malignancy COVID-19 06/21/2020 Overview (06/26/2020): COVID-19 Tracking [reviewed or updated 06/26/2020] ? ? Exposure to confirmed case or travel risk -unknown ? ? Date that symptoms began - unknown ? ? Patient risk factors for severe COVID-19: None ? ? Healthcare worker or appointment manager? No ? ? COVID-19 Tested? - Yes - Date Tested 06/12/20 Testing Location - [facility] - Testing Results - Positive ? ? Is patient ? No Iron deficiency anemia geovannisydnee natalee to inadequate dietary iron intake 06/07/2020 Vitamin D deficiency 06/07/2020 HSIL (high grade squamous in traepithelial lesion) on Pap smear of cervix 05/19/2019 HPV (human papilloma virus) infection 05/19/2019 Anxiety 03/04/2019 Bilateral carpal tunnel syndrome 03/04/2019 History of varicella as a child 02/25/2019 Syphilis contact, treated 11/18/2018 Posttraumatic stress disorder 05/19/2018 Trauma in childhood 02/19/2018 Vitiligo 02/19/2018 Encounters Date Type Department Care Team Description 11/30/2024 1:40 PM EST Office Visit [address] [address] Katrin Figueroa FNP Lopez, Iris Ear itching (Primary Dx); Vertigo from Last 3 Months Immunizations Immunization Administration Dates Next Due Flu, Preservative Free 06/05/2023,2021,08/05/2019,2017 Hep B,adult,adjuvanted (HEPLISAV) 04/04/2022, Influenza (FLUBLOK),recombinant,injectable,pres ervative Free 09/08/2024 MODERNA COVID-19 VACCINE BIV ALENT, BLUE CAP, 6M+ 11/20/2022 Moderna COVID-19 Vaccine, re d cap blue label, 12+ Primary Series 10/05/2021,04/04/2021,03/07/2021 PPD 02/24/2018 TDAP 06/29/2022,02/25/2019 Social History Tobacco Use Types Packs/Day Years Used Date Smoking Tobacco: Never Smokeless Tobacco: Never Tobacco Cessation:Counseling Given: No Alcohol Use Standard Drinks/Week Comments Yes 0 (1 standard drink = 0.6 oz pur e alcohol) social Social Connections Answer Date Recorded Connectedness 1 09/08/2024 Financial Resource Strain Answer Date R ecorded Financial Resource Strain 1 2023 Stress Answer Date Recorded Stress 1 09/08/2024 Physical Activity Answer Date Recorded Physical Activity 0 05/19/2019 Food Insecurity Answer Date Recorded Food 1 09/08/2024 Transportation Needs Answer Date Record ed Transportation 1 09/08/2024 Housing Stability Answer Date Recorded Housing 1 09/08/2024 Safety and Environment Answer Date Richie rded Safety 1 03/09/2024 Utilities Answer Date Recorded Utilities 1 09/08/2024 Employment Answer Date Recorded Stress 0 12/17/2021 Comments No Sex and Gender Information Value Date Recorded Sex Assigned at Female 02/20/2018 7:04 PM PDT Legal Sex Female 12:40 PM PDT Gender Identity Female 02/20/2018 7:04 PM PDT Sexual Orientation Straight 02/20/2018 7: 04 PM PDT Last Filed Vital Signs Vital Sign Reading Time Taken Comments Blood Pressure 133/71 11/30/2024 1:39 PM EST Pulse 82 11/30/2024 1:39 PM EST Temperature 36.7 ??C (98 ??F) 11/30/2024 1:39 PM EST Respiratory Rate 16 11/30/2024 1:39 PM EST Oxygen Saturation 97% 11/30/2024 1:39 PM EST Inhaled Oxygen Concentration - - Weight 82.3 kg (181 lb 6.4 oz) 03/09/2024 3:10 P M EDT Height 175.3 cm (5' 9 ) 09/08/2024 9:41 AM EST Body Mass Index 26.79 03/09/2024 3:10 PM EDT Plan of Treatment Upcoming Encounters Date Type Department Care Team (Late st Contact Info) Description 02/01/2025 9:40 AM EDT Office Visit [facility] [address] [place] [id number] Mirella Blake PA-C [address] [facility] [place] [address] 04/21/2025 1:00 PM EDT Office Visit [facility] [address] [place] [phone] Mojgan Schulte [address] [place] [address] Health Maintenance Due Date Last Done Comments Anxiety Screening 1980 HPV Screening 1980 Breast Cancer Screening (Mammogram) 03/06/2023 03/06/2022, 06/14/2021, 06/05/2021 Syphilis Screening 02/19/2024 02/18/2023, 0 02/17/2022, 02/17/2022, Additional history exists Alcohol and Drug Screen 09/29/2024 09/08/20, 03/09/2024, 11/20/2022, Additional history exists Depression Monitoring 12/07/2024 09/08/2024 , 03/09/2024, 02/18/2023, Additional history exists Pap Smear 02/18/2025 02/18/2022, 05/05/2019 Annual Preventive Care Visit 03/09/2025 03/09/2024, 11/20/2022, 10/16/2021, Additional history exists Relationship Safety Screening/Counseling 03/09/2025 03/09/2024, 11/20/2022, 07/10/2022, Additional history exists Tobacco Screening 03/09/2025 03/09/2024 [id number] ( season) 2025 11/20/2022, 10/05/2021, 04/04/2021, Additional history exists Postponed from 05/30/2024 (Patient postponement) Dental BW 10/23/2025 10/21/2024, 10/31, 05/13/2023, Additional history exists Dental Examination 10/23/2025 10/21/2024, 0 11/19/2023, 05/13/2023, Additional history exists Dental Perio Charting 10/23/2025 10/21/2024 , 11/19/2023, 05/13/2023, Additional history exists Dental Prophy 10/23/2025 10/21/2024, 10/31, 05/13/2023, Additional history exists Diabetes Screening 11/28/2025 11/28/2024, 0 03/09/2024, 03/09/2024, Additional history exists Hypertension Screening (#1) 11/30/2025 Cervical Cancer Screening 02/18/2027 Pap + HPV 02/18/2027 02/18/2022 Dental FMX/Pano 11/13/2027 11/11/2022 Lipid Screening 03/09/2029 03/09/2024, 01/28, 05/31/2020, Additional history exists Imm-DTaP/Tdap/Td (3 - Td or Tdap) 06/29/2032 06/29/2022, 02/25/2019, 02/25/2019 Hepatitis C Screening Completed 02/20/2018 HIV Screening Completed 02/17/2022, 05/30, 02/20/2018 Imm-Hepatitis B Completed 04/04/2022, 02/20/2022 Imm-Influenza Completed 09/08/2024, 03/2023, 10/16/2021, Additional history exists Cervical Ablation/Cold-Knife Conization Discontinued Cervical Cryotherapy Discontinued Colposcopy Discontinued Endometrial Biopsy Discontinued Excision/Leep Discontinued HPV Genotyping Discontinued Vaginal Pap Discontinued Vulvoscopy Discontinued Procedures Procedure Name Priority Date/Time Associated Diagnosis Comments BITEWINGS - FOUR RADIOGRAPHIC IMAGES Routine 10/21/2024 1:40 PM EST Encounter for dental examination PROPHYLAXIS - ADULT Routine 10/21/2024 1 :40 PM EST Encounter for dental examination PERIODIC ORAL EVALUATION ESTABLISHED PATIENT Routine 10/21/2024 1:40 PM EST Encounter for dental examination COMPREHENSIVE METABOLIC PANEL Routine 03/09/2024 4:01 PM EDT Mixed hyperlipidemia Prediabetes LIPID PANEL Routine 03/09/2024 4:01 PM EDT Mixed hyperlipidemia Prediabetes COMP PERIODONTAL EVALUATION - NEW/EST PATIENT Routine 11/19/2023 9:40 AM EST Caries of enamel (incipient) RPR W/RFLX TITER+FTA+CONF Routine 02/18/2023 10:26 AM EDT Routine screening for STI (sexually transmitted infection) INTRAORAL - COMP SERIES OF RADIOGRAPHIC IMAGES Routine 11/11/2022 10:20 AM EST Periodontal disease HISTORIC MAMMOGRAM 03/06/2022 3: 00 AM EDT THIN PREP IMAGE PAP + HPV RNA E6/E7 W/RFLX HPV 16, 18/45 Routine 02/18/2022 1:55 PM EDT Encounter for Papanicolaou smear for cervical cancer screening HIV 1/2 AG & AB W/RFLX (4TH GEN) Routine 02/17/2022 8:00 PM EDT Screening examination for venereal disease HEPATITIS C ANTIBODY Routine 02/20/2018 9:11 AM EDT Routine general medical examination at a health care facility from Last 3 Months or Most Recently Relevant to Health Maintenance Results * (ABNORMAL) LIPID PANEL (03/09/2024 4:01 PM EDT) CHOLESTEROL, TOTAL 196 <200 mg/dL [facility] HDL CHOLESTEROL 63 > OR = 50 mg/dL [employer] [facility] TRIGLYCERIDES 200(H) <150 mg/dL [facility] Comment: If a non-fasting specimen was collected, consider repeat triglyceride testing on a fasting specimen if clinically indicated. Alexi et al. J. of Clin. Lipidol. 2015;9:129-169. LDL-CHOLESTEROL 101(H) 99 mg/dL (calc) [facility] Comment: Reference range: <100 Desirable range <100 mg/dL for primary prevention; ?? <70 mg/dL for patients with CHD or diabetic patients with > or = 2 CHD risk factors. LDL-C is now calculated using the Clarisa calculation, which is a validated novel method providing better accuracy than the Friedewald equation in the estimation of LDL-C. Hamlet BONE et al. JOSE. 2013;310(19): 1839-5766 (http://education.In Hand Guides/faq/LXD143) CHOL/HDLC RATIO 3.1 <5.0 (calc) [facility] NON-HDL CHOLESTEROL 133(H) <130 mg/dL (calc) [facility] Comment: For patients with diabetes plus 1 major ASCVD risk factor, treating to a non-HDL-C goal of <100 mg/dL (LDL-C of <70 mg/dL) is considered a therapeutic option. Blood Blood / Unknown 03/09/2024 4 :01 PM EDT 03/09/2024 4:01 PM EDT Mirella Blake PA-C LAB - BLOOD DRAW Final Resul t [employer] [address] [place] [id number], [employer] [address] [place] [phone] * COMPREHENSIVE METABOLIC PANEL (03/09/2024 4:01 PM EDT) [facility] GLUCOSE 91 65 - 99 mg/dL [facility] Comment: ?Fasting reference interval UREA NITROGEN (BUN) 12 7 - 25 mg/dL [facility] CREATININE (blood) 0.68 0.50 - 0.99 mg/dL [employer] EGFR 111 > OR = 60 mL/min/1. 73m2 [facility] BUN/CREATININE RATIO SEE NOTE: [facility] Comment: ?? Not Reported: BUN and Creatinine are within ?? reference range. ? SODIUM 138 135 - 146 mmol/L [employer] POTASSIUM 4.1 3.5 - 5.3 mmol/L [employer] CHLORIDE 101 98 - 110 mmol/L [employer] CARBON DIOXIDE 30 20 - 32 mmol/L [employer] [facility] CALCIUM 9.2 8.6 - 10.2 mg/dL [employer] [facility] PROTEIN, TOTAL 7.8 6.1 - 8.1 g/dL [employer] [facility] ALBUMIN 4.3 3.6 - 5.1 g/dL [employer] [facility] GLOBULIN 3.5 1.9 - 3.7 g/dL (calc) [employer] [facility] ALBUMIN/GLOBULI N RATIO 1.2 1.0 - 2.5 (calc) [employer] [facility] BILIRUBIN, TOTAL 0.4 0.2 - 1.2 mg/dL [employer] [facility] ALKALINE PHOSPHATASE 87 31 - 125 U/L [employer] [facility] AST 12 10 - 30 U/L [employer] [facility] ALT 12 6 - 29 U/L [employer] [facility] Blood Blood / Unknown 03/09/2024 4 :01 PM EDT 03/09/2024 4:01 PM EDT [employer] Mirella Blake PA-C LAB - BLOOD DRAW Edited Resu lt - Final Performing Organization Address [facility] de Phone Number [employer] [address] [address], [employer] [address] [address] * RPR W/RFLX TITER+FTA+CONF (02/18/2023 10:26 AM EDT) RPR (DX) W/REFL TITER AND CONFIRMATORY TESTING NON-REACT JOSIAH NON-REACT JOSIAH [employer] [facility] Blood Blood / Unknown 02/18/2023 1 0:26 AM EDT 02/18/2023 10:27 AM EDT Narrative [facility] - 02/19/2023 3:17 PM EDT FASTING:YES [employer] Mirella JONES-C LAB - BLOOD DRAW Final Resul t Performing Organization Address [facility] de Phone Number [employer] [address] [address], [employer] [address] [address] * HISTORIC MAMMOGRAM (03/06/2022 3:00 AM EDT) 03/06/2022 3:00 AM EDT Celeste Fischer PA-C IMG MAMMO Edited Resul t - Final * THIN PREP IMAGE PAP + HPV RNA E6/E7 W/RFLX HPV 16, 18/45 (02/18/2022 1:55 PM EDT) CLINICAL INFORMATION See Note [employer] Comment:None given LMP See Note [employer] Comment:[id number] PREV. PAP Xtime PREV. BX See Note [facility] Comment:NONE GIVEN SOURCE See Note [facility] Comment:Cervix, Endocervix STATEMENT OF ADEQUACY See Note [facility] Comment: Satisfactory for evaluation. Endocervical/transformation zone component present. INTERPRETATION/RESU LT See Note [facility] Comment:Negative for intraep ithelial lesion or malignancy. COMMENT See Note [facility] Comment: This Pap test has been evaluated with computer assisted technology. PLATINUM AND PALLADIUM KETTLE TENDER See Note [employer] Comment: SXA, CT(ASCP) CT screening location: [address] ??[address] COMMENT [facility] HPV MRNA E6/E7 Not Detected Not Detected [facility] Comment: Methodology: Recorder Helper Seismograph-Mediated Amplification This assay detects E6/E7 viral messenger RNA (mRNA) from 14 high-risk HPV types (16,18,31,33,35,39,45,51,52,56,58,59,66,68). The analytical performance characteristics of this assay have been determined by [employer]. The modifications have not been cleared or approved by the FDA. This assay has been validated pursuant to the CLIA regulations and is used for clinical purposes. For additional information, please refer to http://education.Cyvera/faq/XCY874t8 (This link if provided for information/ educational purposes only.) Swab Cervix uteri structure / Unknown 02/18/2022 1:55 PM EDT 02/19/2022 10:14 AM EDT [address]arrative [facility] - 02/20/2022 3:39 PM EDT EXPLANATORY NOTE: The Pap is a screening test for cervical cancer. It is not a diagnostic test and is subject to false negative and false positive results. It is most reliable when a satisfactory sample, regularly obtained, is submitted with relevant clinical findings and history, and when the Pap result is evaluated along with historic and current clinical information. us Celeste Fischer PA-C LAB - NO BLOOD DRAW Final Re sult Performing Organization Address City/[facility]/ZIP Co de Phone Number [employer] [facility] [address] [address], [employer] [facility] [address] [address] * HIV 1/2 AG & AB W/RFLX (4TH GEN) (02/17/2022 8:00 PM EDT) HIV AG/AB, 4TH GEN NON-REAC TIVE NON-REAC TIVE [facility] Comment: HIV-1 antigen and HIV-1/HIV-2 antibodies were not detected. There is no laboratory evidence of HIV infection. PLEASE NOTE: This information has been disclosed to you from records whose confidentiality may be protected by state law. ??If your state requires such protection, then the state law prohibits you from making any further disclosure of the information without the specific written consent of the person to whom it pertains, or as otherwise permitted by law. A general authorization for the release of medical or other information is NOT sufficient for this purpose. ?? For additional information please refer to http://education.Todaytickets.[employer]/faq/IXZ226 (This link is being provided for informational/ educational purposes only.) The performance of this assay has not been clinically validated in patients less than 2 years old. Blood Blood / Unknown 02/17/2022 8 :00 PM EDT 02/18/2022 1:50 PM EDT us Celeste Fischer PA-C LAB - BLOOD DRAW Final Resul t Performing Organization Address City/[facility]/ZIP Co de Phone Number [facility] [address] [address], [employer] [facility] [address] [address] * HEPATITIS C ANTIBODY (02/20/2018 9:11 AM EDT) HEPATITIS C VIRUS SCREEN NEGATIVE NEGATIVE [facility] Blood specimen (specimen) Blood / Unknown 02/20/2018 9:11 AM EDT 02/20/2018 10:43 AM EDT Narrative [facility] - 02/20/2018 1:17 PM EDT [facility] [address] [place] [address] PT ID [id number] ORD# [id number] Licha Alexander NP LAB - BLOOD DRAW Final Result [facility] [address] [place] [address], from Last 3 Months or Most Recently Relevant to Health Maintenance Insurance [facility] [employer] [facility] [place] MEDICA[place] DENTAL [address] ACO Care Teams Engineering Aide Relationship Specialty Start Date End Date Mirella Blake PA-C [address] [place] [address] PCP - General FAMILY MEDICINEKAREN 07/11/21
--- NOTE | 2025-01-31 08:48 | ED_ITS ---
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 She has been taking tylenol with little relief. She reports no other hx such as travel. She has been Rx inhaler in past but the pharmacy never fills it. She feels pressure and pain in her face and that she is blocked and cannot blow her nose MD elicited complaint: fever, cough, sore throat, nasal congestion and sinus pain Onset (ago): day(s) (4) Consistency: constant Severity: moderate Description of mucous: clear and yellow Able to tolerate fluids by mouth: Yes Exacerbating factors: exertion Relieving factors: nothing Context: sick contacts Associated symptoms: fever, chills, myalgias, headache, nasal congestion, sore throat and cough Treatments prior to arrival: cold medicine Related Data Previous Rx's ?Medication ?Instructions ?Recorded albuterol sulfate 90 mcg/actuation 2 inh inhalation Q4-6H PRN 11/18/23 breath activated powder inhaler shortness of breath or wheezing #1 ea amoxicillin 500 mg capsule 500 mg PO BID 7 days #14 caps 01/31/25 prednisone 20 mg tablet 40 mg (2 x 20 mg) PO DAILY 4 days 01/31/25 #8 tabs Allergies Allergy/AdvReac Type Severity Reaction Status Date / Time No Known Allergies Allergy Verified 01/31/25 08:15 Review of Systems Review of Systems: Constitutional : positive Fever, positive Chills, positive fatigue, positive Malaise ENT/Mouth : positive sore throat, positive sinus pressure and nasal congsestion Eyes: No Discharge Cardiovascular : No Chest Pain, No SOB Respiratory : No Cough, No Sputum Gastrointestinal : No Nausea, No Vomiting, No Diarrhea Genitourinary : No Dysuria, No Urinary Frequency Musculoskeletal : positive Myalgia Skin : No rash Neuro : No Headache all other systems reviewed and are negative PMFSH Past Medical History Attestation statement: The following information was validated with the patient. Source: old records reviewed Medical History (Updated 01/31/25 @ 09:18 by Sonja Alvarez DO) COVID-19 Social History Social History Patient Tobacco Use Status: Never used Tobacco Advance Directives: No Advance Directives Information Provided: Yes Current occupational status: unemployed Current occupation: right hand dominant Physical Exam Vital Signs: Vital Signs: Last Vital Signs Temp 98.6 F 01/31/25 08:13 Pulse 97 01/31/25 09:03 Resp 18 01/31/25 09:03 BP 125/69 01/31/25 08:13 Pulse Ox 98 01/31/25 08:13 O2 Del Method Room Air 01/31/25 08:13 BMI result Body Mass Index 27.7 Appearance: Alert. Oriented X3. No acute distress. Eyes: Pupils equal, round and reactive to light. ENT: Pharynx mild erythema no exudates, TMs have clear effusion bilaterally, sinus max ttp Neck: Normal inspection. Neck supple. CVS: Normal heart rate and rhythm. Pulses normal. Respiratory: No respiratory distress. Breath sounds normal. Abdomen: Soft and nontender. Skin: Skin warm and dry. Normal skin color. Normal skin turgor. Extremities: No lower extremity edema. No calf ttp Neuro: Oriented X 3. No motor deficit. No sensory deficit. CN2-12 intact Medications Administered Discontinued Medications Generic Name Dose Route Start Last Admin Trade Name Umerq PRN Reason Stop Dose Admin Albuterol Sulfate 2 puff 01/31/25 08:56 01/31/25 09:01 Albuterol Sulfate 90 Mcg 8 Gm Inhaler INHALE 01/31/25 08:57 2 puff ONCE ONE Administration Medical Decision Making Medical Decision Making [facility] Narrative: 44 yo female with PMH of reactive airway disease here with URI symptoms and exam consistent with likely sinusitis - she is not labored, well hydrated and not toxic at this time will obtain CXR, viral panel, start on steroids/INH in hand from ED and po abx for sinusitis. Not toxic appearing Differential Diagnosis Differential Diagnoses: The differential diagnosis associated with the presentation includes viral syndrome, sinusitis, bronchitis Admission/Observation Consideration of admission/observation: Escalation of care including admission/observation considered VS stable, can be managed as outpatient Lab Data [facility] Lab Attestation statement: I reviewed the patient's lab results. Labs: Lab Results 01/31/25 Range/Units 08:24 Influenza Type A (PCR) NEGATIVE (Negative) Influenza Type B (PCR) NEGATIVE (Negative) RSV RNA Qual (PCR) NEGATIVE (Negative) SARS-CoV-2 RNA (RT-PCR) NEGATIVE (Negative) S. pyogenes GrpA KARSTEN Negative (Negative) Independent Interpretation I performed an independent interpretation of an: Plain X-Ray (normal ) Radiology Impression Discussion of test interpretation with radiology: I have reviewed the radiologist's reading. External Record Review External record reviewed: Outpatient record Prescription Management I considered prescription management with: Antibiotic and Other Discharge Plan Discharge Clinical Impression: Sinusitis Qualifiers: Sinusitis location: maxillary Chronicity: acute Recurrence: non-recurrent Qualified Code(s): J01.00 - Acute maxillary sinusitis, unspecified Patient Disposition: Home, Self-Care Instructions: Sinusitis (ED) Additional Instructions: normal chest xray negative for COVID, FLU, RSV continue over the counter tylenol and motrin take antibiotics as prescribed rest and stay hydrated return for any worsening symptoms or concerns USE ALBUTEROL INHALER 2 PUFFS EVERY 4 HOURS NEEDED FOR WHEEZING AND SHORTNESS OF BREATH On amoxicillin , softer bowel movements are to be expected. Call your provider if you move your bowels more than 4 times a day, your bowel movements are almost all liquid, or you get a rash.? Prescriptions: New amoxicillin 500 mg capsule 500 mg PO BID 7 Days Qty: 14 0RF prednisone 20 mg tablet 40 mg PO DAILY 4 Days Qty: 8 0RF No Action albuterol sulfate 90 mcg/actuation aerosol powdr breath activated 2 inh inhalation Q4-6H PRN (Reason: shortness of breath or wheezing) Qty: 1 0RF Stand Alone Forms: Work/School Release Print Language: Czech
[2025-01-31] MEDS: Albuterol Sulfate 90 MCG 8 GM INHALER 2 PUFF INHALE (09:01)
[2025-01-31 09:03] VITALS: PULSE 97; RESP 18; O2SAT 98
[2025-01-31 09:08] LABS: Influenza A PCR NEGATIVE (Negative); Influenza B PCR NEGATIVE (Negative); Resp Syncy Virus RNA Qual PCR NEGATIVE (Negative); SARS COV2 PCR INHOUSE NEGATIVE (Negative)
[2025-01-31] MEDS: predniSONE 20 MG TABLET 40 MG PO (09:13)
[2025-01-31 09:43] VITALS: BP 125/69; PULSE 97; RESP 18; TEMP 37; O2SAT 98
== END 2025-01-31 09:51 | disposition home or self-care (01) ==
PROVIDERS: Emergency Provider Emergency Medicine; PCP Physician Assistant Medical
DX: J01.00 Acute maxillary sinusitis, unspecified (principal); J02.9 Acute pharyngitis, unspecified; R05.9 Cough, unspecified; R50.9 Fever, unspecified; Z03.818 Encounter for observation for suspected exposure to other biological agents ruled out
CPT/HCPCS: 0241U; 71046; 87651; 94640; 99284

== ENCOUNTER → 2025-01-31 09:21 | Outpatient (BNV) | payer MEDICAID, SELFPAY | PROVIDERS: Emergency Provider Emergency Medicine; PCP Physician Assistant Medical; Visit Provider Radiology Diagnostic Radiology | DX: R05.9 Cough, unspecified (principal) | CPT/HCPCS: 71046 ==

== ENCOUNTER 2025-04-04 08:27 | Emergency (ER) | payer MEDICAID, SELFPAY ==
[2025-04-04 08:34] VITALS: BP 109/72; PULSE 74; RESP 14; TEMP 36.6; O2SAT 100; BMI 27.1
--- OUTSIDE RECORDS SUMMARY | 2025-04-04 09:13 | XMS_ITS | Clinical Summary ---
Author Organization [facility] Address [address] [place] [address] Care Team Providers Care Director Cost Name Role Phone Mirella Blake PA-C Primary [...] anemia secondary to inadequate dietary iron intake Take 1 Tablet by mouth 2 (two) times daily with a meal 180 Tablet 1 5 Active cetirizine (ZYRTEC) 10 mg tabletIndicatio ns:Ear itching TAKE 1 TABLET BY MOUTH EVERY DAY 90 Tablet 1 5 Active Active Problems Problem Noted Date Diagnosed Date Depression with anxiety 02/18/2023 Prediabetes 02/18/2023 Mixed hyperlipidemia 02/18/2023 Breast cyst, right 03/12/2022 Overview (03/12/2022): 03/06/22 Found on mammogram - no malignancy COVID-19 06/21/2020 Overview (06/26/2020): COVID-19 Tracking [reviewed or updated 06/26/2020] Exposure to confirmed case or travel risk -unknown Date that symptoms began - unknown Patient risk factors for severe COVID-19: None Healthcare worker or student records specialist? No COVID-19 Tested? - Yes - Date Tested 06/12/20 Testing Location - [facility] - Testing Results - Positive Is patient ? No Iron deficiency anemia secon natalee to inadequate dietary iron intake 06/07/2020 [...] Encounters Date Type Department Care Team Description 03/14/2025 Interim Notes [facility] [address] [place] [phone] Mirella Blake PA-C 02/07/2025 Results Follow-Up [facility] [address] [place] [phone] Mirella Blake PA-C 02/01/2025 9:40 AM EDT Office Visit [facility] [address] [place] [address] Mirella Blake PA-C from Last 3 Months Immunizations Immunization Administration [...] alcohol) social Social Connections Answer Date Recorded How often do you feel lonely or isolated from th ose around you? 1 02/01/2025 Financial Resource Strain Answer Date R ecorded Hard to pay for: Food 1 02/01/2025 Stress Answer Date Recorded Do you feel these kinds of stress these days? 1 02/01/2025 Physical Activity Answer Date Recorded Physical Activity 0 05/19/2019 Food Insecurity Answer Date Recorded Hard to pay for: Food 1 02/01/2025 Transportation Needs Answer Date Record ed Hard to pay for: Transportation 1 02/01/2025 Housing Stability Answer Date Recorded Housing 1 09/08/2024 Safety and Environment Answer Date Richie rded Safety 1 03/09/2024 Utilities Answer Date Recorded Hard to pay for: Utilities 1 02/01 Employment Answer Date Recorded Stress 0 12/17/2021 Comments No Sex and Gender Information Value Date Recorded Sex Assigned at Female 02/20/2018 7:04 PM PDT Legal Sex Female 12:40 PM PDT Gender Identity Female 02/20/2018 7:04 PM PDT Sexual Orientation Straight 02/20/2018 7: 04 PM PDT Last Filed Vital Signs Vital Sign Reading Time Taken Comments Blood Pressure 120/84 02/01/2025 9:37 AM EDT Pulse 94 02/01/2025 9:37 AM EDT Temperature 36.8 C (98.2 F) 02/01/2025 9:37 AM EDT Respiratory Rate 16 02/01/2025 9:37 AM EDT Oxygen Saturation 98% 02/01/2025 9:37 AM EDT Inhaled Oxygen Concentration - - Weight 85.7 kg (188 lb 14.4 oz) 02/01/2025 9:37 AM EDT Height 175.3 cm (5' 9 ) 02/01/2025 9:37 AM EDT Body Mass Index 27.9 02/01/2025 9:37 AM EDT Plan of Treatment Upcoming Encounters Date Type Department Care Team (Late st Contact Info) Description 04/08/2025 9:20 AM EDT Office Visit [facility] [address] [place] [address] Tolu Gustafson MD [address] [place] [address] Nicole Naranjo [address] [place] [address] 04/21/2025 1:00 PM EDT Office Visit [facility] Dental [address] [place] [phone] Mojgan Schulte [address] [place] [address] Health Maintenance Due Date Last Done Comments HPV Screening 1980 Breast Cancer Screening (Mammogram) 03/06/2023 03/06/2022, 06/14/2021, 06/05/2021 [id number] ( season) 2024 11/20/2022, 10/05/2021, 04/04/2021, Additional history exists Pap Smear 02/18/2025 02/18/2022, 05/05/2019 Relationship Safety Screening/Counseling 03/09/2025 03/09/2024, 11/20/2022, 07/10/2022, Additional history exists Depression Monitoring 05/04/2025 02/01/2025 , 09/08/2024, 03/09/2024, Additional history exists Imm-Influenza (#1) 2025 09/08/2024, 0 06/05/2023, 10/16/2021, Additional history exists Dental BW 10/23/2025 10/21/2024, 10/31, 05/13/2023, Additional history exists Dental Examination 10/23/2025 10/21/2024, 0 11/19/2023, 05/13/2023, Additional history exists Dental Perio Charting 10/23/2025 10/21/2024 , 11/19/2023, 05/13/2023, Additional history exists Dental Prophy 10/23/2025 10/21/2024, 10/31, 05/13/2023, Additional history exists Annual Wellness (Adult): Indicated (All Coverage) 02/01/2026 02/01/2025, 03/09/2024, 11/20/2022, Additional history exists Anxiety Screening 02/01/2026 02/01/2025 Diabetes Screening 02/01/2026 02/01/2025, 0 02/01/2025, 11/28/2024, Additional history exists Hypertension Screening (#1) 02/01/2026 Syphilis Screening 02/01/2026 02/01/2025, 0 02/18/2023, 02/17/2022, Additional history exists Tobacco Screening 02/01/2026 02/01/2025 Cervical Cancer Screening 02/18/2027 Pap + HPV 02/18/2027 02/18/2022 Dental FMX/Pano 11/13/2027 11/11/2022 Lipid Screening 02/01/2030 02/01/2025, 02/27, 02/18/2023, Additional history exists Imm-DTaP/Tdap/Td (3 - Td or Tdap) 06/29/2032 06/29/2022, 02/25/2019, 02/25/2019 Hepatitis C Screening Completed 02/20/2018 Imm-Hepatitis B Completed 04/04/2022, 02/20/2022 Alcohol and Drug Screen Completed 02/02/20, 09/08/2024, 03/09/2024, Additional history exists HIV Screening Completed 02/01/2025, 01/28, 06/11/2018, Additional history exists Cervical Ablation/Cold-Knife Conization Discontinued Cervical Cryotherapy Discontinued Colposcopy Discontinued Endometrial Biopsy Discontinued Excision/Leep Discontinued HPV Genotyping Discontinued Vaginal Pap Discontinued Vulvoscopy Discontinued Procedures Procedure Name Priority Date/Time Associated Diagnosis Comments VITAMIN D, 1,25-DIHYDROXY Routine 02/01/2025 10:11 AM EDT Vitamin D deficiency IRON PANEL W TOTAL IRON BINDING CAPACITY Routine 02/01/2025 10:11 AM EDT Other iron deficiency anemia VITAMIN B12 & FOLATE Routine 02/01/2025 10:11 AM EDT Other iron deficiency anemia HGBA1C W/MPG Routine 02/01/2025 10:11 AM EDT Prediabetes LIPID PANEL Routine 02/01/2025 10:11 AM EDT Prediabetes Mixed hyperlipidemia COMPREHENSIVE METABOLIC PANEL Routine 02/01/2025 10:11 AM EDT Prediabetes Mixed hyperlipidemia BLOOD COUNT COMPLETE AUTO&AUTO DIFRNTL WBC Routine 02/01/2025 10:11 AM EDT Prediabetes Mixed hyperlipidemia HIV 1/2 AG & AB W/RFLX (4TH GEN) Routine 02/01/2025 10:11 AM EDT Routine screening for STI (sexually transmitted infection) RPR (DIAGNOSIS) WITH REFLEX TO TITER AND CONFIRMATORY TESTING Routine 02/01/2025 10:11 AM EDT Routine screening for STI (sexually transmitted infection) C TRACHOMATIS/N GONORRHOEAE RNA,TMA Routine 02/01/2025 10:11 AM EDT Routine screening for STI (sexually transmitted infection) IMAGING SCANNED DOCUMENT 01/31/2025 3:00 AM EDT IMAGING SCANNED DOCUMENT 01/31/2025 3:00 AM EDT BITEWINGS - FOUR RADIOGRAPHIC IMAGES Routine 10/21/2024 1:40 PM EST Encounter for dental examination PROPHYLAXIS - ADULT Routine 10/21/2024 1 :40 PM EST Encounter for dental examination PERIODIC ORAL EVALUATION ESTABLISHED PATIENT Routine 10/21/2024 1:40 PM EST Encounter for dental examination COMP PERIODONTAL EVALUATION - NEW/EST PATIENT Routine 11/19/2023 9:40 AM EST Caries of enamel (incipient) INTRAORAL - COMP SERIES OF RADIOGRAPHIC IMAGES Routine 11/11/2022 10:20 AM EST Periodontal disease HISTORIC MAMMOGRAM 03/06/2022 3: 00 AM EDT THIN PREP IMAGE PAP + HPV RNA E6/E7 W/RFLX HPV 16, 18/45 Routine 02/18/2022 1:55 PM EDT Encounter for Papanicolaou smear for cervical cancer screening HEPATITIS C ANTIBODY Routine 02/20/2018 9:11 AM EDT Routine general medical examination at a health care facility from Last 3 Months or Most Recently Relevant to Health Maintenance Results * RPR (DIAGNOSIS) WITH REFLEX TO TITER AND CONFIRMATORY TESTING (02/01/2025 10:11 AM EDT) RPR (DX) W/REFL TITER AND CONFIRMATORY TESTING NON-REACT JOSIAH NON-REACT JOSIAH [facility] Comment: No laboratory evidence of syphilis. If recent exposure is suspected, submit a new sample in 2-4 weeks. Serum Blood / Unknown 02/01/2025 1 0:11 AM EDT 02/01/2025 10:12 AM EDT Narrative [facility] - 02/05/2025 5:46 PM EDT FASTING:NO Mirella Blake PA-C LAB - BLOOD DRAW Edited Resu lt - Final [facility] [address] [address], [facility] [address] [address] * HIV 1/2 AG & AB W/RFLX (4TH GEN) (02/01/2025 10:11 AM EDT) HIV AG/AB, 4TH GEN NON-REAC TIVE NON-REAC TIVE [facility] Comment: HIV-1 antigen and HIV-1/HIV-2 antibodies were not detected. There is no laboratory evidence of HIV infection. PLEASE NOTE: This information has been disclosed to you from records whose confidentiality may be protected by state law. If your state requires such protection, then the state law prohibits you from making any further disclosure of the information without the specific written consent of the person to whom it pertains, or as otherwise permitted by law. A general authorization for the release of medical or other information is NOT sufficient for this purpose. For additional information please refer to http://education.Native/faq/YWL170 (This link is being provided for informational/ educational purposes only.) The performance of this assay has not been clinically validated in patients less than 2 years old. Blood Blood / Unknown 02/01/2025 1 0:11 AM EDT 02/01/2025 10:12 AM EDT Narrative [facility] - 02/05/2025 5:46 PM EDT FASTING:NO us Mirella Blake PA-C LAB - BLOOD DRAW Final Resul t [facility] [address] [place] [address], [facility] [address] [address] * CHLAMYDIA/GONORRHOEAE RNA, TMA, URINE (02/01/2025 10:11 AM EDT) CHLAMYDIA TRACHOMATIS RNA, TMA NOT DETECTED NOT DETECTED [facility] NEISSERIA GONORRHOEAE RNA, TMA NOT DETECTED NOT DETECTED [facility] COMMENT [facility] Urine Urine specimen / Unknown 02/01/2025 10:11 AM EDT 02/01/2025 10:12 AM EDT Narrative [facility] - 02/05/2025 5:46 PM EDT FASTING:NO The analytical performance characteristics of this assay, when used to test SurePath(TM) specimens have been determined by [facility]. The modifications have not been cleared or approved by the FDA. This assay has been validated pursuant to the CLIA regulations and is used for clinical purposes. For additional information, please refer to https://education.Native/faq/MXT214 (This link is being provided for information/ educational purposes only.) Mirella Blake PA-C LAB BODY FLUIDS AND STOOLS A MBULATORY Edited Result - Final Performing Organization Address [facility] de Phone Number [facility] [address] [place] [address], [facility] [address] [address] * (ABNORMAL) HGBA1C W/MPG (02/01/2025 10:11 AM EDT) HEMOGLOBIN A1C 5.8(H) <5.7 % [facility] Comment: For someone without known diabetes, a hemoglobin A1c value between 5.7% and 6.4% is consistent with prediabetes and should be confirmed with a follow-up test. For someone with known diabetes, a value <7% indicates that their diabetes is well controlled. A1c targets should be individualized based on duration of diabetes, age, comorbid conditions, and other considerations. This assay result is consistent with an increased risk of diabetes. Currently, no consensus exists regarding use of hemoglobin A1c for diagnosis of diabetes for children. MEAN PLASMA GLUCOSE 129 mg/dL (calc) [facility] Blood Blood / Unknown 02/01/2025 1 0:11 AM EDT 02/01/2025 10:12 AM EDT Narrative [facility] - 02/05/2025 5:46 PM EDT FASTING:NO us Mirella Blake PA-C LAB - BLOOD DRAW Edited Resu lt - Final Performing Organization Address [facility] Co de Phone Number [facility] [address] [place] [address], [facility] [address] [address] * VITAMIN D, 1,25-DIHYDROXY (02/01/2025 10:11 AM EDT) VITAMIN D, 1, 25 (OH)2, TOTAL 66 18 - 72 pg/mL [facility] VITAMIN D3, 1, 25 (OH)2 66 pg/mL [facility] VITAMIN D2, 1, 25 (OH)2 <8 pg/mL [facility] Comment: Vitamin D3, 1,25(OH)2 indicates both endogenous production and supplementation. Vitamin D2, 1,25(OH)2 is an indicator of exogenous sources, such as diet or supplementation. Interpretation and therapy are based on measurement of Vitamin D,1,25(OH)2, Total. This test was developed and its analytical performance characteristics have been determined by [facility], [place], [place]. It has not been cleared or approved by the FDA. This assay has been validated pursuant to the CLIA regulations and is used for clinical purposes. 02/01/2025 10:1 1 AM EDT 02/01/2025 10:12 AM EDT Narrative [facility] - 02/05/2025 5:46 PM EDT FASTING:NO Mirella Blake PA-C LAB - BLOOD DRAW Final Resul t [facility] [place] [address] [place], [place] , [facility] [address] [place], [place] * (ABNORMAL) IRON PANEL W TOTAL IRON BINDING CAPACITY (02/01/2025 10:11 AM EDT) Pathologist [facility] IRON, TOTAL 15(L) 40 - 190 mcg/dL [facility] IRON BINDING CAPACITY 505(H) 250 - 450 mcg/dL (calc) [facility] % SATURATION 3(L) 16 - 45 % (calc) [facility] 02/01/2025 10:1 1 AM EDT 02/01/2025 10:12 AM EDT Narrative [facility] - 02/05/2025 5:46 PM EDT FASTING:NO Mirella Blake PA-C LAB - BLOOD DRAW Edited Resu lt - Final Performing Organization Address [facility] de Phone Number [facility] [address] [address], [facility] [address] [address] * VITAMIN B12 & FOLATE (02/01/2025 10:11 AM EDT) [facility] VITAMIN B12 236 200 - 1,100 pg/mL [facility] Comment: Please Note: Although the reference range for vitamin B12 is 200-1100 pg/mL, it has been reported that between 5 and 10% of patients with values between 200 and 400 pg/mL may experience neuropsychiatric and hematologic abnormalities due to occult B12 deficiency; less than 1% of patients with values above 400 pg/mL will have symptoms. FOLATE, SERUM 10.4 5.5 ng/mL [facility] Comment: Reference Range Low: <3.4 Borderline: 3.4-5.4 Normal: >5.4 02/01/2025 10:1 1 AM EDT 02/01/2025 10:12 AM EDT [facility] [facility] - 02/05/2025 5:46 PM EDT FASTING:NO us Mirella Blake PA-C LAB - BLOOD DRAW Edited Resu lt - Final Performing Organization Address [facility] de Phone Number [facility] [address] [address], [facility] [address] [address] * (ABNORMAL) BLOOD COUNT COMPLETE AUTO&AUTO DIFRNTL WBC (02/01/2025 10:11 AM EDT) [facility] WHITE BLOOD CELL COUNT 7.9 3.8 - 10.8 Thousand/ uL [facility] RED BLOOD CELL COUNT 4.30 3.80 - 5.10 Million/u L [facility] HEMOGLOBIN 9.3(L) 11.7 - 15.5 g/dL [facility] HEMATOCRIT 32.6(L) 35.0 - 45.0 % [facility] MCV 75.8(L) 80.0 - 100.0 fL [facility] MCH 21.6(L) 27.0 - 33.0 pg [facility] MCHC 28.5(L) 32.0 - 36.0 g/dL [facility] Comment: For adults, a slight decrease in the calculated MCHC value (in the range of 30 to 32 g/dL) is most likely not clinically significant; however, it should be interpreted with caution in correlation with other red cell parameters and the patient's clinical condition. RDW 17.9(H) 11.0 - 15.0 % [facility] PLATELET COUNT 447(H) 140 - 400 Thousand/ uL [facility] MPV 10.6 7.5 - 12.5 fL [facility] ABSOLUTE NEUTROPHILS 3,405 1,500 - 7,800 cells/uL [facility] ABSOLUTE LYMPHOCYTES 3,547 850 - 3,900 cells/uL [facility] ABSOLUTE MONOCYTES 853 200 - 950 cells/uL [facility] ABSOLUTE EOSINOPHILS 71 15 - 500 cells/uL [facility] ABSOLUTE BASOPHILS 24 0 - 200 cells/uL [facility] NEUTROPHILS PCT 43.1 % [facility] LYMPHOCYTES 44.9 % [facility] MONOCYTES 10.8 % [facility] EOSINOPHILS 0.9 % [facility] BASOPHILS 0.3 % [employer] [facility] Blood Blood / Unknown 02/01/2025 1 0:11 AM EDT 02/01/2025 10:12 AM EDT Narrative [facility] [facility] - 02/05/2025 5:46 PM EDT FASTING:NO us Mirella Blake PA-C LAB - BLOOD DRAW Edited Resu lt - Final [facility] [facility] [address] [address], [facility] [address] [place] [address] * (ABNORMAL) LIPID PANEL (02/01/2025 10:11 AM EDT) Pathologist [facility] CHOLESTEROL, TOTAL 209(H) <200 mg/dL [facility] HDL CHOLESTEROL 53 > OR = 50 mg/dL [facility] TRIGLYCERIDES 216(H) <150 mg/dL [facility] Comment: If a non-fasting specimen was collected, consider repeat triglyceride testing on a fasting specimen if clinically indicated. Alexi et al. J. of Clin. Lipidol. 2015;9:129-169. LDL-CHOLESTEROL 122(H) 99 mg/dL (calc) [facility] Comment: Reference range: <100 Desirable range <100 mg/dL for primary prevention; <70 mg/dL for patients with CHD or diabetic patients with > or = 2 CHD risk factors. LDL-C is now calculated using the Clarisa calculation, which is a validated novel method providing better accuracy than the Friedewald equation in the estimation of LDL-C. Hamlet BONE et al. JOSE. 2013;310(19): 4039-1431 (http://education.[employer]/faq/KTP027) CHOL/HDLC RATIO 3.9 <5.0 (calc) [facility] NON-HDL CHOLESTEROL 156(H) <130 mg/dL (calc) [facility] Comment: For patients with diabetes plus 1 major ASCVD risk factor, treating to a non-HDL-C goal of <100 mg/dL (LDL-C of <70 mg/dL) is considered a therapeutic option. Blood Blood / Unknown 02/01/2025 1 0:11 AM EDT 02/01/2025 10:12 AM EDT Narrative [facility] - 02/05/2025 5:46 PM EDT FASTING:NO us Mirella Blake PA-C LAB - BLOOD DRAW Final Resul t [facility] [address] [place] [address], [facility] [address] [place] [address] * (ABNORMAL) COMPREHENSIVE METABOLIC PANEL (02/01/2025 10:11 AM EDT) [facility] GLUCOSE 88 65 - 139 mg/dL [facility] Comment: Non-fasting reference interval UREA NITROGEN (BUN) 11 7 - 25 mg/dL [facility] CREATININE (blood) 0.63 0.50 - 0.99 mg/dL [facility] EGFR 112 > OR = 60 mL/min/1. 73m2 [facility] BUN/CREATININE RATIO SEE NOTE: [facility] Comment: Not Reported: BUN and Creatinine are within reference range. SODIUM 137 135 - 146 mmol/L [facility] POTASSIUM 3.8 3.5 - 5.3 mmol/L [facility] CHLORIDE 103 98 - 110 mmol/L [facility] CARBON DIOXIDE 27 20 - 32 mmol/L [facility] CALCIUM 9.2 8.6 - 10.2 mg/dL [facility] PROTEIN, TOTAL 8.0 6.1 - 8.1 g/dL [facility] ALBUMIN 4.2 3.6 - 5.1 g/dL [facility] GLOBULIN 3.8(H) 1.9 - 3.7 g/dL (calc) [facility] ALBUMIN/GLOBULI N RATIO 1.1 1.0 - 2.5 (calc) [facility] BILIRUBIN, TOTAL 0.2 0.2 - 1.2 mg/dL [facility] ALKALINE PHOSPHATASE 82 31 - 125 U/L [facility] AST 11 10 - 30 U/L [facility] ALT 9 6 - 29 U/L [facility] Blood Blood / Unknown 02/01/2025 1 0:11 AM EDT 02/01/2025 10:12 AM EDT Narrative [employer] [facility] - 02/05/2025 5:46 PM EDT FASTING:NO Mirella Blake PA-C LAB - BLOOD DRAW Edited Resu lt - Final [facility] [address] [address], [facility] [address] [place] [address] * IMAGING SCANNED DOCUMENT (01/31/2025 3:00 AM EDT) Only the most recent of2 resultswithin the time period is included. 01/31/2025 3:00 AM EDT Mirella Blake PA-C SCAN IMAGING Final Result * HISTORIC MAMMOGRAM (03/06/2022 3:00 AM EDT) 03/06/2022 3:00 AM EDT Celeste Fischer PA-C IMG MAMMO Edited Resul t - Final * THIN PREP IMAGE PAP + HPV RNA E6/E7 W/RFLX HPV 16, 18/45 (02/18/2022 1:55 PM EDT) CLINICAL INFORMATION See Note [facility] Comment:None given LMP See Note [facility] Comment:[id number] PREV. PAP [facility] PREV. BX See Note [facility] Comment:NONE GIVEN SOURCE See Note [facility] Comment:Cervix, Endocervix STATEMENT OF ADEQUACY See Note [facility] Comment: Satisfactory for evaluation. Endocervical/transformation zone component present. INTERPRETATION/RESU LT See Note [facility] Comment:Negative for intraep ithelial lesion or malignancy. COMMENT See Note [facility] Comment: This Pap test has been evaluated with computer assisted technology. ICU CLERK See Note [facility] Comment: SXA, CT(ASCP) CT screening location: [place] [address] COMMENT [facility] HPV MRNA E6/E7 Not Detected Not Detected [facility] Comment: Methodology: Marker Assembler-Mediated Amplification This assay detects E6/E7 viral messenger RNA (mRNA) from 14 high-risk HPV types (16,18,31,33,35,39,45,51,52,56,58,59,66,68). The analytical performance characteristics of this assay have been determined by [employer]. The modifications have not been cleared or approved by the FDA. This assay has been validated pursuant to the CLIA regulations and is used for clinical purposes. For additional information, please refer to http://education.Native/faq/PWG216x6 (This link if provided for information/ educational purposes only.) Swab Cervix uteri structure / Unknown 02/18/2022 1:55 PM EDT 02/19/2022 10:14 AM EDT Narrative [facility] - 02/20/2022 3:39 PM EDT EXPLANATORY NOTE: [...] along with historic and current clinical information. Celeste Fischer PA-C LAB - PATHOLOGY AND CYTOLOGY AMBULATORY Final Result [facility] [place] [facility] [facility] [address] [address], [facility] [address] [address] * HEPATITIS C ANTIBODY (02/20/2018 9:11 AM EDT) HEPATITIS C VIRUS SCREEN NEGATIVE NEGATIVE [facility] Blood specimen (specimen) Blood / Unknown 02/20/2018 9:11 AM EDT 02/20/2018 10:43 AM EDT Narrative [facility] - 02/20/2018 1:17 PM EDT [facility] [address] [place] [address] PT ID [id number] ORD# [id number] Licha Alexander NP LAB - BLOOD DRAW Final Result [address] [address], from Last 3 Months or Most Recently Relevant to Health Maintenance Insurance [facility] [place] [address] [place] MEDICA[place] DENT[place] [address] ACO Care Teams Director Cost Relationship Specialty Start Date End Date Mirella Blake PA-C [address] [place] [address] PCP - General FAMILY MEDICINEKAREN 07/11/21
--- OUTSIDE RECORDS SUMMARY | 2025-04-04 09:13 | XMS_ITS | Clinical Summary ---
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 05/19/2019 Overview (09/06/2024): Colpo 10/07/19 - biopsy at 1:00 and ECC MONIQUE 2 LEEP 11/23/2019 - MONIQUE 2-3 on LEEP specimen, top hat neg, margins all neg Last Assessment & Plan: Pap smear done 04/2019 - HSIL, +HPV Colpo with ECC and biopsies at 11, 1, 6 Social History Tobacco Use Types Packs/Day Years Used Date Smoking Tobacco: Never Smokeless Tobacco: Never Alcohol Use Standard Drinks/Week Comments Yes 0 (1 standard drink = 0.6 oz pur e alcohol) Comments Unknown Sex and Gender Information Value Date Recorded Sex Assigned at Female 11/29/2024 6:37 AM EST Legal Sex Female 9:05 AM EST Gender Identity Female 11/29/2024 6:37 AM EST Sexual Orientation Choose not to disclose 2024 6:37 AM EST Obstetrics History Last Filed Vital Signs Vital Sign Reading Time Taken Comments Blood Pressure 110/70 11/29/2024 6:25 AM EST Pulse 87 11/29/2024 6:25 AM EST Temperature 37 C (98.6 F) 11/29/2024 6:25 AM EST Respiratory Rate 16 11/29/2024 6:25 AM EST Oxygen Saturation 97% 11/29/2024 6:25 AM EST Inhaled Oxygen Concentration - - Weight 82.6 kg (182 lb) 11/29/2024 12:44 AM EST Height 175.3 cm (5' 9 ) 11/29/2024 12:44 AM EST Body Mass Index 26.88 11/29/2024 12:44 AM EST Plan of Treatment Upcoming Encounters Date Type Department Care Team (Late st Contact Info) Description 04/19/2025 11:30 AM EDT Office Visit Obstetrics and Gynecology - [address] [id number] Kelsey Carranza CN[address] [id number] Health Maintenance Due Date Last Done Comments Breast Cancer Screening 1980 Pneumococcal Vaccine: Pediatrics (0 to 5 Years) and At-Risk Patients (6 to 64 Years) (1 of 2 - PCV) 1999 HIV Screening 09/01/2022 Social Influencers of Health Screening 09/01/2022 COVID-19 Vaccine ( season) 2024 11/20/2022, 10/05/2021, 04/04/2021, Additional history exists Influenza Vaccine (#1) 2025 , 06/05/2023, 10/16/2021, Additional history exists Depression Screening 09/08/2025 09/08/2024 Cervical Cancer Screening: HPV 09/03/2027 09/03/2022 Cholesterol Screening (Lipid Panel) 03/09/2029 03/09/2024, 03/09/2024, 02/18/2023, Additional history exists DTaP,Tdap,and Td Vaccines (3 - Td or Tdap) 06/29/2032 06/29/2022, 02/25/2019 Hepatitis C Screening Completed 02/20/2018, 018 Hepatitis B Vaccines Completed 04/04/2022, 02/21/20 HIB Vaccines Aged Out No longer eligi ble based on patient's age to complete this topic HPV Vaccines Aged Out No longer eligi ble based on patient's age to complete this topic Hepatitis A Vaccines Aged Out No long er eligible based on patient's age to complete this topic IPV Vaccines Aged Out No longer eligi ble based on patient's age to complete this topic MMR Vaccines Aged Out No longer eligi ble based on patient's age to complete this topic Meningococcal ACWY Vaccine Aged Out N o longer eligible based on patient's age to complete this topic Meningococcal B Vaccine Aged Out No l onger eligible based on patient's age to complete this topic RSV Immunization Patients Under 20 months Aged Out No longer eligible based on patient's age to complete this topic Varicella Vaccines Aged Out No longer eligible based on patient's age to complete this topic Procedures Procedure Name Priority Date/Time Associated Diagnosis Comments HPV Routine 09/03/2022 from Last 3 Months or Most Recently Relevant to Health Maintenance Results * Cervical Cancer Screening: HPV (09/03/2022) Cervical Cancer Screening: HPV negative, abstracted Historical Provider MD HEALTH MAINTENANCE Final Result from Last 3 Months or Most Recently Relevant to Health Maintenance Insurance MEDICAID - [place] Care Teams Roving Carrier Relationship Specialty Start Date End Date Mirella Blake PA [address] [place] [address] PCP - General 11/29/24
[2025-04-04 09:42] VITALS: BP 107/65; PULSE 72; RESP 18; TEMP 37.1; O2SAT 98
--- NOTE | 2025-04-04 09:44 | ED_ITS ---
HPI - Neck Pain/Injury General Chief Complaint: Neck Pain/Injury Stated Complaint: R shoulder pain radiating to chest & head Time Seen by Provider: 04/04/25 09:44 Source: patient Mode of arrival: ambulatory Limitations: no limitations History of Present Illness ED Provider: Jaci Ashby PA-C HPI Narrative: 44 yo female presenting to the ER for evaluation of right sided neck pain that radiates down her arm. She reports tightness and soreness in her upper trapezius on the right side. She states she woke up with this pain yesterday. It is worse when she moves her arm or turns her head a certain way. She denies any central neck pain, headache, chest pain, numbness or tingling down the arm. No arm weakness. She has not taken any medications for the pain MD complaint: neck pain (Right lateral) Onset (ago): day(s) (2) Place: home Radiation: right lateral Severity: moderate Severity scale (1-10): 7 Quality: aching and spasming Duration: constant Relieving factors: none Exacerbating factors: movement of neck Associated symptoms: none Treatments prior to arrival: none Related Data Previous Rx's ?Medication ?Instructions ?Recorded albuterol sulfate 90 mcg/actuation 2 inh inhalation Q4 -6H PRN 11/18/23 breath activated powder inhaler shortness of breath or wheezing #1 ea amoxicillin 500 mg capsule 500 mg PO BID 7 days #14 ca ps 01/31/25 prednisone 20 mg tablet 40 mg (2 x 20 mg) PO DAILY 4 days 01/31/25 #8 tabs cyclobenzaprine 10 mg tablet 10 mg PO TID PRN muscle s pasm #10 04/04/25 tabs ibuprofen 600 mg tablet 600 mg PO Q8H PRN pain #14 t abs 04/04/25 lidocaine 5 % topical patch 1 patch topical DAILY #15 ea 04/04/25 Allergies Allergy/AdvReac Type Severity Reaction Status Date / Time No Known Allergies Allergy Verified 04/04/25 08:36 Review of Systems Review of Systems: Yes all other systems are reviewed and are negative [facility] Past Medical History Medical History (Updated 04/04/25 @ 10:11 by KAREN Lam) COVID-19 Social History Social History Alcohol intake: current Alcohol intake frequency: a few times a week Alcohol t ype: other Patient Tobacco Use Status: Never used Tobacco Smoked in Last 30 Days: No Use of substances other than those prescribed or required for medical reasons: No Advance Directives: No Advance Directives Information Provided: Yes Do you have a plan to hurt others: No Plan Patient : No Current occupational status: unemployed Current occupation: right hand dominant Physical Exam Vital Signs: Vital Signs: Last Vital Signs Temp 98.7 F 04/04/25 09:42 Pulse 72 04/04/25 09:42 Resp 18 04/04/25 09:42 BP 107/65 04/04/25 09:42 Pulse Ox 98 04/04/25 09:42 O2 Del Method Room Air 04/04/25 09:42 BMI result Body Mass Index 27.1 Appearance: Alert. Oriented X3. No acute distress. HEENT: normal inspection Neck: Normal inspection. No midline tenderness. There is soft tissue tenderness and palpable spasm of the right lateral neck and right upper trapezius CVS: Normal heart rate and rhythm. Pulses normal. Respiratory: No respiratory distress. Lungs are clear throughout Skin: Skin warm and dry. Normal skin color. Normal skin turgor. No rashes. Extremities: Normal inspection x4, no joint swelling. Full active and passive range of motion of the right upper extremity. Neuro: Oriented X 3. No motor deficit. No sensory deficit. Medications Administered Discontinued Medications Generic Name Dose Route Start Last Admin Trade Name Freq PRN Reason Stop Dose Admin Ketorolac Tromethamine 30 mg 04/04/25 09:52 04/04/25 10:01 Ketorolac Tromethamine 30 Mg/Ml Vial IM 04/04/25 09:53 30 mg ONCE ONE Administration Lidocaine 1 patch 04/04/25 09:52 04/04/25 10:01 Lidocaine 4 % Patch Adh..Patch TRANSDERMA 04/04/25 09:53 1 patch ONCE ONE Administration Protocol Medical Decision Making Medical Decision Making MDM Narrative: 44-year-old female presents to the ER for evaluation of right lateral neck pain and soreness that she woke up with 2 days ago. Exam without any focal deficits. She does have soft tissue tenderness and palpable spasm in the upper trapezius. Her exam and clinical presentation are most consistent with muscle strain and spasm. Will treat accordingly with NSAIDs and muscle relaxers. No emergent need for imaging today. She appears well, has stable vital signs. Given Toradol and Salonpas here in the ER. She is feeling better. She is stable for discharge home with outpatient follow-up. freelance interpreter/translator used to discuss diagnosis, plan, return precautions. All questions were answered. Differential Diagnosis Differential Diagnoses: The differential diagnosis associated with the presentation includes Cervical strain, cervical spasm, cervical radiculopathy, rotator cuff injury, torticollis External Record Review External record reviewed: Outpatient record and Prior outpatient labs Tests considered The following testing was considered but not selected: Considered CT scan of the head and cervical spine Prescription Management I considered prescription management with: Pain Medication and Other (Muscle relaxers) Critical Care Time Critical Care Time Critical Care Time: No Discharge Plan Discharge Clinical Impression: Strain of neck muscle Qualifiers: Encounter type: initial encounter Qualified Code(s): S16.1XXA - Strain of muscle, fascia and tendon at neck level, initial encounter Patient Disposition: Home, Self-Care Instructions: Cervical Strain (DC) Additional Instructions: Your pain is most likely due to muscle strain and spasm. Limit lifting Use ice several times per day for 20 minutes at a time for the next 48 hours and then change to heat. Take medications as prescribed to help with pain and discomfort. Follow up with your Primary Care Doctor this week. If you develop new or worsening symptoms call 911 or come back to the ER for further evaluation. Prescriptions: New cyclobenzaprine 10 mg tablet 10 mg PO TID PRN (Reason: muscle spasm) Qty: 10 0RF ibuprofen 600 mg tablet 600 mg PO Q8H PRN (Reason: pain) Qty: 14 0RF lidocaine 5 % adhesive patch,medicated 1 patch topical DAILY Qty: 15 0RF Rx Instructions: leave on most painful area for up to 12 hrs No Action albuterol sulfate 90 mcg/actuation aerosol powdr breath activated 2 inh inhalation Q4-6H PRN (Reason: shortness of breath or wheezing) Qty: 1 0RF amoxicillin 500 mg capsule 500 mg PO BID 7 Days Qty: 14 0RF prednisone 20 mg tablet 40 mg PO DAILY 4 Days Qty: 8 0RF Interventions: ED Discharge Assessment Last Done: 04/04/25 10:19 Print Language: [place]an
--- NOTE | 2025-04-04 09:50 | PC.NURSE ---
44 F presents to ED with R neck, R shoulder pain that radiates to R breast, 10/ that started when she woke up yesterday morning. Pt is A+Ox4, calm and cooperative. Pt denies SOB, RR even and unlabored. Denies any other complaints.
[2025-04-04] MEDS: Lidocaine 4 % Patch ADH..PATCH 1 PATCH TRANSDERMA (10:01)
[2025-04-04 10:19] VITALS: BP 107/65; PULSE 72; RESP 18; TEMP 37.1; O2SAT 98
== END 2025-04-04 10:20 | disposition home or self-care (01) ==
PROVIDERS: Emergency Provider Emergency Medicine; PCP Physician Assistant Medical
DX: S16.1XXA Strain of muscle, fascia and tendon at neck level, initial encounter (principal); M54.2 Cervicalgia; R07.89 Other chest pain; R51.9 Headache, unspecified; X58.XXXA Exposure to other specified factors, initial encounter; Y93.9 Activity, unspecified; Y92.9 Unspecified place or not applicable; Y99.8 Other external cause status
CPT/HCPCS: 96372; 99284; J1885

== ENCOUNTER 2025-09-01 12:15 | Emergency (ER) | payer MEDICAID, SELFPAY ==
--- NOTE | ~2025-09-01 | XR_ITS ---
EXAMINATION: XR CHEST 1 VIEW HISTORY: coughing COMPARISON: Comparison is made with the prior examination dated 01/31/2025. FINDINGS: A single PA view of the chest is submitted. There is biapical pleural and parenchymal scarring. The lungs are expanded and clear. There is no pleural effusion, pneumothorax, or pulmonary vascular congestion. The heart is normal in size. The bones are intact. XR/XR chest 1V IMPRESSION: No acute cardiopulmonary abnormality. Electronically signed by: Tolu Wyman MD 09/01/2025 01:27 PM [place]
[2025-09-01 12:58] VITALS: BP 124/58; PULSE 90; RESP 15; TEMP 36.1; O2SAT 100; BMI 27.2
--- NOTE | 2025-09-01 13:06 | ED_ITS ---
HPI - General Adult General Chief complaint: Upper Respiratory Symptoms Stated complaint: Cough Congestion Running Nose Time Seen by Provider: 09/01/25 13:35 Source: patient Mode of arrival: ambulatory Limitations: no limitations History of Present Illness ED Provider: Wayne Hernandez HPI narrative: 45 yold female with pmh of carpal tunnel syndrome presents to the ED for coughing, nasal congestion, bodyaches, general malias for the past 5 days. Related Data Previous Rx's ?Medication ?Instructions ?Recorded albuterol sulfate 90 mcg/actuation 2 inh inhalation Q4 -6H PRN 11/18/23 breath activated powder inhaler shortness of breath or wheezing #1 ea amoxicillin 500 mg capsule 500 mg PO BID 7 days #14 ca ps 01/31/25 prednisone 20 mg tablet 40 mg (2 x 20 mg) PO DAILY 4 days 01/31/25 #8 tabs cyclobenzaprine 10 mg tablet 10 mg PO TID PRN muscle s pasm #10 04/04/25 tabs ibuprofen 600 mg tablet 600 mg PO Q8H PRN pain #14 t abs 04/04/25 lidocaine 5 % topical patch 1 patch topical DAILY #15 ea 04/04/25 benzonatate 200 mg capsule 200 mg PO TID PRN cough #15 caps 09/01/25 Allergies Allergy/AdvReac Type Severity Reaction Status Date / Time No Known Allergies Allergy Verified 09/01/25 13:03 Review of Systems Review of Systems: coughing, sore throat, nasal congestion, bodyaches, hedache Yes all other systems are reviewed and are negative [facility] Past Medical History Medical History (Updated 09/02/25 @ 00:00 by Deonna Quintanilla) COVID-19 Social History Social History Alcohol intake: current Alcohol intake frequency: a few times a week Alcohol type: other Patient Tobacco Use Status: Never used Tobacco Advance Directives: No Advance Directives Information Provided: No Current occupational status: unemployed Current occupation: right hand dominant Physical Exam ED Vital Signs: Vital Signs - 24 hr 09/01/25 12:58 Temperature 97 F Pulse Rate 90 Respiratory Rate 15 Blood Pressure 124/58 L Pulse Oximetry 100 Oxygen Delivery Method Room Air BMI result Body Mass Index 27.2 Const General: cooperative, healthy appearing, comfortable, no acute distress, well developed, alert, awake and Physically active Orientation/consciousness: patient oriented x3 [facility] Head: Yes normal to inspection, Yes No palpable skull fracture present, Yes normocephalic and Yes atraumatic Eyes General: appearance normal, both eyes and all related structures Neck Neck: Yes normal visual inspection, Yes full ROM, Yes no lymphadenopathy, Yes no meningeal signs, Yes trachea midline, Yes supple, No anterior neck swelling and No tender Chest Chest palpation & inspection: normal inspection of the chest and normal palpation of entire chest wall Resp Effort & Inspection: normal respiratory effort and able to speak in complete sentences Auscultation: clear to auscultation bilaterally Cardio Jugular venous distension: no JVD Heart sounds: S1 normal heart sound present and S2 normal heart sound present GI Inspection: Yes normal to inspection Palpation (GI): Soft to palpation, not firm, nontender, no guarding and not rigid General: Yes no CVA tenderness Back/Spine/Pelvis Back: no CVA tenderness and No back tenderness Skin General skin exam: no rashes or lesions noted, elasticity normal and turgor normal Neuro General: patient oriented x3, gait normal, tone normal, moves all extremities, Normal light touch and pain sensation, no meningeal signs, no focal motor deficits, CN's II-XI intact bilaterally and normal sensation to monofilament Extrem General: Yes normal to inspection, Yes full ROM and Yes capillary refill normal Psych Appearance: grossly normal, well kempt and not disheveled Course Course Course Narrative: RME: 45-year-old female presents to the ED for body aches, headache URI symptoms for the past 5 days. Patient denies any shortness of breath chest pain. Swabs x-ray ordered Medical Decision Making Medical Decision Making [facility] Narrative: RME: 45-year-old female presents to ED for URI coughing body aches headache and chills for the past 5 days. Patient denies any chest pain or shortness of breath. Swabs xray ordered. Not suspecting WA, PE, myocarditits, pericardititis, CHF, hypoxia, or any other life threatening etiology. Differential Diagnosis Differential Diagnoses: The differential diagnosis associated with the presentation includes (URI) Admission/Observation Consideration of admission/observation: Escalation of care including admission/observation considered Lab Data [facility] Lab Attestation statement: I reviewed the patient's lab results. Labs: Lab Results 12/04/25 12/04/25 Range/Units 13:18 13:19 COVID-19 (DWIGHT) Negative (Negative) COVID-19 Clin Com See Note Influenza Type A (KARSTEN) Negative (Negative) Influenza Type B (KARSTEN) Negative (Negative) Influenza A & B Note See Note Independent Interpretation I performed an independent interpretation of an: Plain X-Ray Radiology Impression Discussion of test interpretation with radiology: I have reviewed the radiologist's reading. Discharge Plan Discharge Clinical Impression: Upper respiratory infection Patient Disposition: Home, Self-Care Instructions: Upper Respiratory Infection (ED) Additional Instructions: Recommend follow up with primary care provider. Return to the ED for any chest pain, shortness of breath, coughing up blood, fever, chills, any other concerning symptoms. Prescriptions: New benzonatate 200 mg capsule 200 mg PO TID PRN (Reason: cough) Qty: 15 0RF No Action cyclobenzaprine 10 mg tablet 10 mg PO TID PRN (Reason: muscle spasm) Qty: 10 0RF ibuprofen 600 mg tablet 600 mg PO Q8H PRN (Reason: pain) Qty: 14 0RF lidocaine 5 % adhesive patch,medicated 1 patch topical DAILY Qty: 15 0RF Rx Instructions: leave on most painful area for up to 12 hrs albuterol sulfate 90 mcg/actuation aerosol powdr breath activated 2 inh inhalation Q4-6H PRN (Reason: shortness of breath or wheezing) Qty: 1 0RF amoxicillin 500 mg capsule 500 mg PO BID 7 Days Qty: 14 0RF prednisone 20 mg tablet 40 mg PO DAILY 4 Days Qty: 8 0RF Referrals: [facility] [Provider Group, Internal Medicine] - 2 days Referral Note: URI Clinical Impression: Upper respiratory infection Stand Alone Forms: Work/School Release Interventions: ED Discharge Assessment Last Done: 09/01/25 15:03 Discharge Date/Time: 09/01/25 15:03 Print Language: English
[2025-09-01 14:02] LABS: COVID-19 Test Negative (Negative); IDNOW Serial# 58CA691E
[2025-09-01 14:03] LABS: IDNOW Serial# 55D5AD1C; Influenza B2 Negative (Negative)
[2025-09-01 15:03] VITALS: BP 124/58; PULSE 90; RESP 15; TEMP 36.1; O2SAT 100
== END 2025-09-01 15:03 | disposition home or self-care (01) ==
PROVIDERS: Physician Assistant; Emergency Provider Emergency Medicine; PCP Dentist General Practice
DX: J06.9 Acute upper respiratory infection, unspecified (principal); R05.9 Cough, unspecified; R09.81 Nasal congestion; M79.10 Myalgia, unspecified site; G56.03 Carpal tunnel syndrome, bilateral upper limbs
CPT/HCPCS: 71045; 87502; 87635; 99282; 99283

== ENCOUNTER → 2025-09-01 13:04 | Outpatient (BNV) | payer MEDICAID, SELFPAY | PROVIDERS: Emergency Provider Emergency Medicine; Visit Provider Radiology Diagnostic Radiology | DX: R05.9 Cough, unspecified (principal) | CPT/HCPCS: 71045 ==